=== PATIENT | male | born 1940 | race Caucasian/White ===

== ENCOUNTER → 2019-01-03 10:49 | Outpatient (CLI) | payer MEDICARE, SELFPAY ==
--- NOTE | 2019-01-03 10:56 | XR_ITS ---
XR knee LT 3V HISTORY: ITS.REASON: ACUTE PAIN LT KNEE ORDERING PHYSICIAN: Bakari Edmond MD PATIENT AGE: 78 years COMPARISON: None FINDINGS: Mild osteoarthritic changes involve all 3 compartments. No fracture or dislocation. No lytic or blastic change. There is increased density in the suprapatellar region suggesting knee joint effusion. Moderate vascular calcification also noted. 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
== END ==
PROVIDERS: PCP Internal Medicine Adolescent Medicine; Visit Provider Internal Medicine Adolescent Medicine
DX: M25.562 Pain in left knee (principal)
CPT/HCPCS: 73562

== ENCOUNTER → 2021-02-19 10:08 | Outpatient (CLI) | payer MEDICARE, SELFPAY ==
[2021-02-19 11:02] LABS: Basophils % 0.5 % (0.1-2.0); Eosinophils # 0.1 K/mm3 (0.0-0.4); Eosinophils % 1.5 % (0.1-12.0); Hematocrit 48.8 % (42.0-52.0); Hemoglobin 15.8 g/dL (14.1-18.0); Lymphocytes # 1.9 K/mm3 (0.7-4.5); Lymphocytes % 27.6 % (10-50); Mean Corpuscular HGB Conc 32.3 g/dL (31.8-35.4); Mean Corpuscular Hemoglobin 29.8 pg (27.0-31.2); Mean Corpuscular Volume 92.2 fl (80-94); Mean Platelet Volume 9.1 fl (7.4-10.4); Monocytes # 0.6 K/mm3 (0.1-1.0); Monocytes % 8.7 % (1.7-9.3); Neutrophils # 4.2 K/mm3 (1.8-7.8); Neutrophils % 61.7 % (37.0-80.0); Platelet Count 177 K/mm3 (142-424); Red Blood Count 5.29 M/mm3 (4.60-6.20); Red Cell Distribution Width 13.4 % (11.5-17.5); White Blood Count 6.7 K/mm3 (4.8-10.8)
[2021-02-19 11:13] LABS: Chloride 106 mmol/L (98-107); Sodium 137 mmol/L (136-145)
[2021-02-19 11:14] LABS: Potassium 4.7 mmoL/L (3.5-5.1)
[2021-02-19 11:16] LABS: Alanine Aminotransferase 21 U/L (12-78); Albumin Level 4.2 g/dl (3.5-5.0); Albumin/Globulin Ratio 1.5 (1.1-1.8); Alkaline Phosphatase 87 U/L (38-126); Anion Gap 12.7 mEq/L (5-15); Aspartate Amino Transferase 31 U/L (17-59); Bilirubin,Total 0.9 mg/dl (0.2-1.3); Blood Urea Nitrogen 37 mg/dl (9-20); Calcium 9.1 mg/dl (8.4-10.2); Carbon Dioxide 23 mmol/L (22.0-30.0); Cholesterol 270 mg/dl (140-200); Estimated Glomerular Filt Rate 23 ml/min (>60); GFR (African American) 28 ML/MIN (>60); Globulin 2.8 g/dL (1.3-3.2); Glucose 107 mg/dl (74-100); Triglycerides 191 mg/dl (30-150); VLDL Cholesterol 38 mg/dL (0-40)
[2021-02-19 11:17] LABS: Chol/HDL Ratio 6.9 (1-3.5); HDL Cholesterol 39 mg/dl (40-60)
[2021-02-19 11:28] LABS: Direct LDL Cholesterol 165.84 mg/dL (100-129)
== END ==
PROVIDERS: Visit Provider Internal Medicine Adolescent Medicine
DX: I10 Essential (primary) hypertension (principal); N18.2 Chronic kidney disease, stage 2 (mild)
CPT/HCPCS: 36415; 80053; 80061; 85025

== ENCOUNTER → 2021-02-25 11:54 | Outpatient (CLI) | payer MEDICARE, SELFPAY ==
--- NOTE | 2021-02-25 | CA_ITS ---
APPROVED REPORT Exam: Pharmacologic Technologist: Abbey England, Ht: 5 ft 3 in Wt: 175 lbs BSA: 1.83 m2 HR: 57 bpm BP: 157/77 mmHg Medical History Medications: Lisinopril,,,,, Aspirin,,,,, TAMSULOSIN,,,,, Stress Test Details Test: LEXISCAN HR Resting HR: 60 bpm Max Heart Rate (APMHR): 138 bpm Max HR Achieved: 76 bpm Target HR (85% APMHR): 117 bpm % of APMHR: 55 Recovery HR: 64 bpm BP Resting BP: 157/77 mmHg Max BP: 157/77 mmHg Recovery BP: 132.0/69.0 mmHg ECG Resting ECG: NSR Clinical Exercise duration: 04:01 min Highest Stage Achieved: Stress ECG Conclusion Symptoms: None Arrhythmias/Ectopy: Rare PAC. ST-T Changes: No significant changes Conclusion: Unremarkable Lexiscan stress. Myoview images reported separately. Electronically signed by : Saurabh Mishra, 02/25/2021 21:45:01
--- NOTE | 2021-02-25 12:04 | NM_ITS ---
APPROVED REPORT Exam: Nuclear Stress Test Indication: chest pain..short of breath Patient Location: Outpatient Stress Tech: Abbey England OR Tech:Piper Ta, ARRT, RT (R)(N) Ht: 5 ft 5 in Wt: 175 lbs HR: 57 bpm BP: 157/77 mmHg BSA: 1.87 m2 BMI: 29.1 History: chest pain..short of breath Procedure: Patient received a 0.4 mg of intravenous Lexiscan, resting heart rate 57 bpm, resting blood pressure 157/77 mmHg, with Lexiscan maximum heart rate achived was 71 bpm which is Less than 85 % of the maximum predicted heart rate and blood pressure was 132/67 mmHg. With Lexiscan, patient denied any complaint of chest pain. Electrocardiogram Stick electrocardiogram shows sinus rhythm, with Lexiscan there is less than 1.[address] segment depression noted from the baseline EKG. The EKG portion of the Lexiscan is nondiagnostic. Cardiac Stress and Resting SPECT Images: Cardiac Stress and Resting SPECT images were obtained using technetium 99m Myoview 32.9 mCi stress and 9.99 mCi at rest. Gated SPECT for analysis of segmental wall motion and calculation of the ejection fraction also done. Cardiac stress and rest SPECT images show moderate to large sized area of fixed defect involving the anterior, anterior apical, apex and anteroseptal wall consistent with area of myocardial scarring without significant sunshine-infarct ischemia, computer derived ejection fraction is 42% with marked hypokinesis involving the anterior, anterior apical, apex and anteroseptal wall, right ventricle is normal size and contractility. Conclusion: 1. The EKG portion of the Lexiscan is nondiagnostic. 2. Scintigraphic evidence of myocardial scarring as described above without significant sunshine-infarct ischemia, computer derived ejection fraction 42% with segmental wall motion abnormality as described above. Right ventricle is normal size and contractility. 3. Abnormal Lexiscan Myoview study. Electronically signed by : Saurabh Mishra, 02/25/2021 21:57:05
== END ==
PROVIDERS: PCP Internal Medicine Adolescent Medicine; Visit Provider Internal Medicine Adolescent Medicine
DX: I20.8 Other forms of angina pectoris (principal)
CPT/HCPCS: 78452; 93017; A9502; J2785

== ENCOUNTER → 2021-08-21 11:13 | Outpatient (CLI) | payer MEDICARE, SELFPAY ==
[2021-08-21 11:38] LABS: Basophils % 0.4 % (0.1-2.0); Eosinophils # 0.1 K/mm3 (0.0-0.4); Hematocrit 47.5 % (42.0-52.0); Hemoglobin 15.3 g/dL (14.1-18.0); Lymphocytes # 1.8 K/mm3 (0.7-4.5); Lymphocytes % 24.9 % (10-50); Mean Corpuscular HGB Conc 32.1 g/dL (31.8-35.4); Mean Corpuscular Hemoglobin 30.8 pg (27.0-31.2); Mean Platelet Volume 8.5 fl (7.4-10.4); Monocytes # 0.6 K/mm3 (0.1-1.0); Monocytes % 8.9 % (1.7-9.3); Neutrophils # 4.7 K/mm3 (1.8-7.8); Neutrophils % 64.9 % (37.0-80.0); Platelet Count 187 K/mm3 (142-424); Red Blood Count 4.95 M/mm3 (4.60-6.20); Red Cell Distribution Width 13.4 % (11.5-17.5); White Blood Count 7.2 K/mm3 (4.8-10.8)
[2021-08-21 12:38] LABS: Anion Gap 13.7 mEq/L (5-15); Blood Urea Nitrogen 34 mg/dl (9-20); Calcium 8.8 mg/dl (8.4-10.2); Carbon Dioxide 25 mmol/L (22.0-30.0); Chloride 105 mmol/L (98-107); Estimated Glomerular Filt Rate 27 ml/min (>60); GFR (African American) 33 ML/MIN (>60); Glucose 104 mg/dl (74-100); Potassium 4.7 mmoL/L (3.5-5.1); Sodium 139 mmol/L (136-145)
[2021-08-21 13:07] LABS: Prostate Specific Ag, Diagnost 5.68 ng/ml (0.0-4.0)
== END ==
PROVIDERS: Visit Provider Internal Medicine Adolescent Medicine
DX: I10 Essential (primary) hypertension (principal); R97.20 Elevated prostate specific antigen [PSA]
CPT/HCPCS: 36415; 80048; 84153; 85025

== ENCOUNTER 2024-10-31 11:00 | Outpatient (RCR) | payer MEDICARE, SELFPAY ==
--- NOTE | 2024-10-20 08:42 | HMH.PTOPWND ---
Rehab Outpt Wound Evaluation Rehab OP Wound Evaluation Start: 10/20/24 07:59 Freq: Status: Active Protocol: Document 10/20/24 08:23 RADHA (Rec: 10/20/24 08:42 PHORNAILA [id number]) E-signed By John Paul Cates, PT Subjective/History History History This is the initial PT wound care eval for Traas Jamison, 83 yowm who presents with L elbow skin tear that occurred ~ 3 days ago. He reports, I was lifting upmy recliner to look for something, when it fell over and skinned my arm through my shirt sleeve. He does take anticoagulant medications and was initially concerned about the bleeding, but this has mostly subsided now. He reports no pain at this time and no tenderness around the wound area. He has PMH of CAD with stents. Subjective Subjective Currently no c/o pain or TTP, no significant edema noted. New diagnosis of cancer in past 12 No months? Wound Eval Wound Left Elbow Wound Type Skin Tear Is This a Chronic Wound No Wound Length (cm) 5.9 Wound Width (cm) 5.0 Wound Depth (cm) 0.1 Wound Bed Appearance Beefy Red Percentage Granulated (%) 100 Wound Margins Description Well Defined Surrounding Tissue Appearance [place],Purple Edema Degree None Query Text:1+ Trace, Barely Detectable, Rebound 15-30 seconds 2+ Moderate, Slight Indentation, Rebound 10-20 seconds 3+ Deep, Deeper Indentation, Rebound > 30 seconds 4+ Very Deep, Rebound > 60 seconds Drainage Description Sanguineous Drainage Amount Small Primary Dressing Composite Comment aquaphor, optifoam thin Wound Secondary Dressing Type Adhering Gauze Roll Wound Debridement Method Forceps,Gauze,Mechanical Dressing Change Patient Tolerance Tolerated Well Wound Problems/Impairments Impairments Problems/Impairmments Wound Care Needs,Impaired Self Care/Self Management Prognosis Rehab Potential Good Comment Skilled therapy is indicated to reduce overall wound surface area and return pt to PLOF. Clinical Impression Consistent with Diagnosis Yes Short Term Goals Number of Weeks 2 Decrease Wound Area Yes: by 25% Medical Record Administrator Goals Number of Weeks 4 Decrease Wound Area Yes: by 75% Outpatient Therapy Plan of Care Treatment Plan May Include Manual Therapy Techniques Yes ADL/Self Care Education Yes Wound Care Yes Eval/Re-Eval Yes Frequency Times per week 1 Duration Number of Weeks 4 Addendums This patient is a candidate for social No or vocational rehab? Patient/Guardian verbally acknowledges Yes understanding of treatment program and consents to further treatment? Patient/Guardian verbally acknowledges Yes understanding of diagnosis, prognosis and goals for treatment? Eval Complexity PT Charges 68174 - Moderate Complexity PHYSICIAN CERTIFICATION: I certify the specified therapy services for Taras Jamison are required, authorized, and reviewed every 30 days.
== END 2024-10-31 23:59 | disposition home or self-care (01) ==
LOC: PT 11:00
PROVIDERS: Visit Provider Nurse Practitioner Family
DX: S51.812A Laceration without foreign body of left forearm, initial encounter (principal)
CPT/HCPCS: 97162; 97597

== ENCOUNTER 2025-10-17 14:10 | Outpatient (CLI) | payer MEDICARE, SELFPAY ==
--- OUTSIDE RECORDS SUMMARY | 2025-10-17 14:13 | XMS_ITS | Continuity of Care Document ---
Author Organization [facility] [place] [address] Phone Care Team Providers Care Cow Tender Name Role Phone No Pcp, Per Patient Primary Care Provider Feliciai obed Encounters Date Type Department Care Team Description 07/19/2025 [place] [address] Phil Larsen MD Medication Refill 07/10/2025 3:00 PM EDT Office [place] [address] Phil Larsen MD Chronic systolic heart failure (HCC) (Primary Dx) 04/03/2025 3:15 PM EDT Office [place] [address] Phil Larsen MD Chronic systolic heart failure (HCC) (Primary Dx) 03/06/2025 [place]phone [place] [address] Phil Larsen MD Medication Question 03/06/2025 11:30 AM EDT Office Visit [facility] [address] Phil Larsen MD Sleep disturbance (Primary Dx); Primary hypertension 02/21/2025 Refill [facility] [address] [address] Phil Larsen MD Medication Refill 02/04/2025 12:07 PM EDT - 02/08/2025 3:46 PM EDT Hospital Encounter [facility] [place] [address] Ramin Trevizo MD Watson, James Brandon, DO Syncope and collapse (Primary Dx) Discharge Disposition: Home or Self Care 02/04/2025 Travel 01/24/2025 10:45 AM EDT Office Visit [facility] Nephrology [place] [address] [place] [address] Pauly Chan APRN Stage 4 chronic kidney disease (HCC) (Primary Dx); Essential hypertension 01/17/2025 7:42 AM EDT - 01/17/2025 8:15 AM EDT Hospital Encounter [facility] [address] [place] [address] Stage 4 chronic kidney disease (HCC); Essential hypertension; Isolated proteinuria with minor glomerular abnormality; Hypertension, unspecified type Discharge Disposition: Home or Self Care 01/17/2025 8:16 AM EDT - 01/17/2025 11:59 PM EDT Hospital Encounter [facility] [place] [address] Pauly Chan APRN Stage 4 chronic kidney disease (HCC); Essential hypertension Discharge Disposition: Home or Self Care 01/16/2025 Orders Only [facility] Nephrology [place] [address] [place] [address] Selvin Longo MD Hypertension, unspecified type (Primary Dx) 12/28/2024 10:45 AM EDT Office Visit [facility] Nephrology [place] [address] [place] [address] Pauly Chan APRN Stage 4 chronic kidney disease (HCC) (Primary Dx); Essential hypertension 12/14/2024 Telephone [facility] [address] [place] [address] Phil Larsen MD Results 12/13/2024 9:55 AM EST - 12/13/2024 11:59 PM EST Hospital Encounter [facility] [address] [place] [place] [address] Stage 4 chronic kidney disease (HCC); Essential hypertension; Isolated proteinuria with minor glomerular abnormality; 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; Encounter to establish care; Chronic systolic heart failure (HCC); Stage 3 chronic kidney disease, unspecified whether stage 3a or 3b CKD (HCC) Discharge Disposition: Home or Self Care 2024 11:15 AM EST Office Visit [facility] [address] [address] Phil Larsen MD 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; Encounter to establish care; Chronic systolic heart failure (HCC); Stage 3 chronic kidney disease, unspecified whether stage 3a or 3b CKD (HCC) 11/10/2024 Telephone [facility] [address] [address] Phil Larsen MD Medication Question 11/02/2024 Refill [facility] [address] [address] Phil Larsen MD Medication Refill 10/14/2024 Refill [facility] Nephrology [place] [address] [place] [address] Selvin Longo MD Medication Refill 09/21/2024 12:15 PM EST Office Visit [facility] Nephrology [place] [address] [place] [address] Selvin Lnogo MD Stage 4 chronic kidney disease (HCC) (Primary Dx); Essential hypertension; Isolated proteinuria with minor glomerular abnormality 09/13/2024 9:54 AM EST - 09/13/2024 11:59 PM EST Hospital Encounter [facility] [place] [address] Stage 4 chronic kidney disease (HCC); Essential hypertension; Isolated proteinuria with minor glomerular abnormality Discharge Disposition: Home or Self Care 08/23/2024 Refill [facility] Nephrology [place] [address] [place] [address] Selvin Longo MD Medication Refill 06/15/2024 2:15 PM EDT Office Visit [facility] Nephrology [place] [address] [place] [address] Selvin Longo MD Stage 4 chronic kidney disease (HCC) (Primary Dx); Essential hypertension; Isolated proteinuria with minor glomerular abnormality 06/08/2024 9:36 AM EDT - 06/08/2024 11:59 PM EDT Hospital Encounter [facility] [address] [address] Stage 4 chronic kidney disease (HCC); Essential hypertension; Isolated proteinuria with minor glomerular abnormality Discharge Disposition: Home or Self Care 05/03/2024 [place] [address] Phil Larsen MD Medication Refill 04/11/2024 [place] [address] Phil Larsen MD Patient Question 04/06/2024 Refill [facility] [place] [id number] Phil Larsen MD Medication Refill 04/04/2024 10:30 AM EDT Office Visit [facility] [address] [address] Phil Larsen MD Sleep disturbance (Primary Dx) 03/27/2024 Telephone [facility] [address] [address] Salas Blair MD Other 03/15/2024 1:30 PM EDT Office Visit [facility] Nephrology [address] [place] [address] Selvin Longo MD Stage 4 chronic kidney disease (HCC) (Primary Dx); Essential hypertension; Isolated proteinuria with minor glomerular abnormality 03/07/2024 Orders Only [facility] Nephrology [address] [place] [address] Selvin Longo MD Chronic kidney disease, stage IV (severe) (HCC) (Primary Dx) 03/07/2024 10:04 AM EDT - 03/07/2024 11:59 PM EDT Hospital Encounter [facility] [address] [address] Chronic kidney disease, stage IV (severe) (HCC) Discharge Disposition: Home or Self Care 03/06/2024 Telephone [facility] [address] [address] Phil Larsen MD Appointment Needed 02/21/2024 4:45 PM EDT - 02/21/2024 11:59 PM EDT Hospital Encounter [facility] [address] [place] [address] Syncope and collapse Discharge Disposition: Home or Self Care 02/20/2024 12:41 PM EDT - 02/21/2024 6:32 PM EDT Hospital Encounter [facility] [address] [address] [place] [address] Shai Chacon MD Moise, Ephese, MD Syncope and collapse (Primary Dx) Discharge Disposition: Home or Self Care 02/20/2024 Travel 02/08/2024 11:00 AM EDT Office Visit [facility]&[address] [address] Phil Larsen MD Chronic systolic heart failure (HCC) (Primary Dx) 01/28/2024 Refill SE[facility] H&[address] [address] Phil Larsen MD Medication Refill 12/25/2023 Refill [facility] Nephrology [address] [place] [address] Selvin Longo MD Medication Refill 12/23/2023 9:42 AM EST - 12/23/2023 11:59 PM EST Hospital Encounter [facility] [address] [place], [place] [address] Stage 4 chronic kidney disease (HCC); Essential hypertension; Isolated proteinuria with minor glomerular abnormality Discharge Disposition: Home or Self Care 12/16/2023 2:15 PM EST Office Visit [facility] Nephrology [address] [address] Selvin Longo MD Stage 4 chronic kidney disease (HCC) (Primary Dx); Essential hypertension; Isolated proteinuria with minor glomerular abnormality 12/10/2023 10:32 AM EST - 12/10/2023 11:59 PM EST Hospital Encounter [facility] [place] [facility] [address] [place], [place] [address] Stage 4 chronic kidney disease (HCC); Essential hypertension; Isolated proteinuria with minor glomerular abnormality Discharge Disposition: Home or Self Care 12/08/2023 Refill [facility] [place] [address] [facility] [address] [place] [address] Phil Larsen MD Medication Refill 11/24/2023 Refill [facility] Nephrology [address] [address] Selvin Longo MD Medication Refill 11/15/2023 Refill [facility] [address] [address] Phil Larsen MD Medication Refill 09/15/2023 1:45 PM EST Office Visit [facility] Nephrology [address] [address] Selvin Longo MD Stage 4 chronic kidney disease (HCC) (Primary Dx); Essential hypertension; Isolated proteinuria with minor glomerular abnormality 09/06/2023 Orders Only [facility] [address] [place] [address] Radha Estevez Chronic kidney disease, stage IV (severe) (HCC) 09/06/2023 10:45 AM EST - 09/06/2023 11:59 PM EST Hospital Encounter [facility] [address] [place] [address] Discharge Disposition: Home or Self Care 09/06/2023 Orders Only [facility] Nephrology [address] [address] Selvin Longo MD Chronic kidney disease, stage IV (severe) (HCC) (Primary Dx) 07/27/2023 1:45 PM EDT Office Visit [facility] [address] [address] Phil Larsen MD 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) 06/15/2023 Refill [facility] [address] [address] Phil Larsen MD Medication Refill 06/09/2023 1:15 PM EDT Office Visit [facility] Nephrology [address] [address] Selvin Longo MD Stage 4 chronic kidney disease (HCC) (Primary Dx); Essential hypertension 06/02/2023 1:27 PM EDT - 06/02/2023 11:59 PM EDT Hospital Encounter [facility] [address] [place] [address] Hyperlipidemia, unspecified hyperlipidemia type; Stage 4 chronic kidney disease (HCC); Essential hypertension Discharge Disposition: Home or Self Care 05/20/2023 Refill [facility] Nephrology [address] [address] Pauly Chan APRN Medication Refill 04/23/2023 Refill [facility] [place] [address] [facility] [address] [place] [address] Phil Larsen MD Medication Refill 03/09/2023 10:15 AM EDT Office Visit [facility] Nephrology [place] [address] [place] [address] Pauly Chan APRN Stage 4 chronic kidney disease (HCC) (Primary Dx); Essential hypertension 03/06/2023 Refill [facility] [address] [address] Selvin Longo MD Medication Refill 03/02/2023 Orders Only [facility] Nephrology [address] [address] Selvin Longo MD Chronic kidney disease, stage IV (severe) (HCC) (Primary Dx) 03/02/2023 Travel 03/02/2023 10:09 AM EDT - 03/02/2023 11:59 PM EDT Hospital Encounter [facility] [address] [address] Chronic kidney disease, stage IV (severe) (HCC) Discharge Disposition: Home or Self Care 01/19/2023 11:45 AM EDT Office Visit [facility] [address] [address] Phil Larsen MD Primary hypertension (Primary Dx) 01/11/2023 Telephone [facility] [address] [phone] Phil Larsen MD Lab Orders 01/11/2023 Travel 01/11/2023 10:18 AM EDT - 01/11/2023 11:59 PM EDT Hospital Encounter [facility] [address] [place] [address] Stage 4 chronic kidney disease (HCC); Essential hypertension, malignant Discharge Disposition: Home or Self Care 11/05/2022 1:15 PM EST Office Visit [facility] Nephrology [address] [address] Selvin Longo MD Stage 4 chronic kidney disease (HCC) (Primary Dx); Essential hypertension, malignant 10/30/2022 Refill [facility] [place] [address] [facility] [address] [place] [address] Phil Larsen MD Medication Refill 10/28/2022 Travel 10/28/2022 9:33 AM EST - 10/28/2022 11:59 PM EST Hospital Encounter [facility] [address] [address] Stage 4 chronic kidney disease (HCC); Essential hypertension, malignant; Isolated proteinuria with minor glomerular abnormality Discharge Disposition: Home or Self Care 07/14/2022 1:30 PM EDT Office Visit [facility] [address] [address] Phil Larsen MD 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); Encounter to establish care; Chronic systolic heart failure (HCC); Stage 3 chronic kidney disease, unspecified whether stage 3a or 3b CKD (HCC) 07/09/2022 2:15 PM EDT Office Visit [facility] Nephrology [address] [place] [address] Selvin Longo MD Stage 4 chronic kidney disease (HCC) (Primary Dx); Essential hypertension, malignant; Isolated proteinuria with minor glomerular abnormality 07/02/2022 Travel 07/02/2022 10:38 AM EDT - 07/02/2022 11:59 PM EDT Hospital Encounter [facility] [address] [address] Stage 4 chronic kidney disease (HCC); Essential hypertension, malignant; Isolated proteinuria with minor glomerular abnormality Discharge Disposition: Home or Self Care 05/20/2022 Refill [facility] [address] [address] Phil Larsen MD Medication Refill 05/18/2022 Refill [facility] Nephrology [place] [address] [place] [address] Selvin Longo MD Medication Refill 05/11/2022 Telephone [facility] [address] [address] Phil Larsen MD Results 05/04/2022 Travel 05/04/2022 1:29 PM EDT - 05/04/2022 11:59 PM EDT Hospital Encounter [facility] 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; Chronic systolic heart failure (HCC) Discharge Disposition: Home or Self Care 04/07/2022 1:30 PM EDT Office Visit [facility] Nephrology [address] [place] [address] Selvin Longo MD Stage 4 chronic kidney disease (HCC) (Primary Dx); Essential hypertension, malignant; Isolated proteinuria with minor glomerular abnormality 03/31/2022 Orders Only [facility] [place] [facility] [address] [place] [address] Flavio Shepard RT Stage 4 chronic kidney disease (HCC); Essential hypertension, malignant; Isolated proteinuria with minor glomerular abnormality 03/31/2022 Travel 03/31/2022 1:09 PM EDT - 03/31/2022 11:59 PM EDT Hospital Encounter [facility] [place] [facility] [address] [place], [place] [address] Discharge Disposition: Home or Self Care 02/18/2022 Travel 02/18/2022 7:59 AM EDT - 02/18/2022 11:59 PM EDT Hospital Encounter [facility] [place] [facility] [address] [place] [address] S/P coronary artery stent placement; 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 Discharge Disposition: Home or Self Care 12/23/2021 11:45 AM EST Office Visit [facility] [place] [address] [place] [address] Phil Larsen MD S/P coronary artery stent placement (Primary Dx); 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; Chronic systolic heart failure (HCC) 12/17/2021 Travel 12/17/2021 10:30 AM EST Office Visit [facility] Nephrology [address] [place] [address] Selvin Longo MD Stage 4 chronic kidney disease (HCC) (Primary Dx); Essential hypertension, malignant; Isolated proteinuria with minor glomerular abnormality 12/11/2021 Travel 12/11/2021 10:35 AM EST - 12/11/2021 11:59 PM EST Hospital Encounter [facility] [address] [address] Stage 4 chronic kidney disease (HCC); Essential hypertension, malignant; Isolated proteinuria with minor glomerular abnormality Discharge Disposition: Home or Self Care 11/17/2021 Telephone [facility] [address] [address] Phil Larsen MD Medication Refill 11/15/2021 Refill [facility] [place] [address] [place] [phone] Liya Deutsch APRN Medication Refill 11/11/2021 Refill [facility] [place] [address] [phone] Phil Larsen MD Medication Refill 09/17/2021 11:15 AM EST Office Visit [facility] Nephrology [address] [place] [id number] Selvin Longo MD Stage 4 chronic kidney disease (HCC) (Primary Dx); Essential hypertension, malignant; Isolated proteinuria with minor glomerular abnormality 09/10/2021 Travel 09/10/2021 10:45 AM EST - 09/10/2021 11:59 PM EST Hospital Encounter [facility] [address] [address] Stage 4 chronic kidney disease (HCC); Essential hypertension, malignant; Isolated proteinuria with minor glomerular abnormality Discharge Disposition: Home or Self Care 08/26/2021 Telephone [facility] [address] [place] [address] Phil Larsen MD Medication Question 08/13/2021 9:30 AM EDT Office Visit [facility] Nephrology [address] [place] [address] Selvin Longo MD Stage 4 chronic kidney disease (HCC) (Primary Dx); Essential hypertension, malignant; Isolated proteinuria with minor glomerular abnormality 07/31/2021 Telephone [facility] Nephrology [place] [address] [place] [address] Selvin Longo MD Labs Only 07/31/2021 Travel 07/31/2021 8:55 AM EDT - 07/31/2021 11:59 PM EDT Hospital Encounter [facility] [address] [place], [place] [address] Stage 3 chronic kidney disease, unspecified whether stage 3a or 3b CKD (HCC); Essential hypertension, malignant Discharge Disposition: Home or Self Care 07/07/2021 Telephone [facility] [address] [place] [address] [address] [place] [address] Laly Riley, Clerical Staff Cardiac Rehab (Referral) 06/27/2021 9:43 AM EDT - 06/27/2021 11:59 PM EDT Hospital Encounter [facility] [address] [place], [place] [address] Stage 4 chronic kidney disease (HCC); Essential hypertension Discharge Disposition: Home or Self Care 06/24/2021 Travel 06/24/2021 4:00 PM EDT Office Visit [facility] [address] [place] [phone] Phil Larsen MD 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) 06/19/2021 Travel 06/19/2021 2:19 PM EDT - 06/19/2021 11:59 PM EDT Hospital Encounter [facility] [address] [place], [place] [address] 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 [place] [address] Lisa, Candy, Clerical Staff Cardiac Rehab (referral ) 05/21/2021 Telephone [facility] Cardiac Rehab Honey Riley [address] [place] [address] Candy Gonzalez, Clerical Staff Cardiac Rehab (referral ) 05/16/2021 7:43 AM EDT - 05/17/2021 10:40 AM EDT [place] [address] Helen Braun MD Coronary artery disease involving tuolumne coronary artery of tuolumne heart with other form of angina pectoris (HCC) Discharge Disposition: Home or Self Care 05/16/2021 Travel 05/16/2021 12:00 PM EDT - 05/16/2021 1:30 PM EDT Surgery [facility] MENTAL HEALTH TECH [facility] [place] [address] Helen Braun MD CORONARY PERCUTANEOUS INTERVENTION (PCI) 05/14/2021 Refill [facility] [address] [place] [address] Phil Larsen MD Medication Refill 05/14/2021 Travel 05/14/2021 11:49 AM EDT - 05/14/2021 11:59 PM EDT Hospital Encounter [facility] Lab [address] [place] [address] Coronary artery disease involving tuolumne coronary artery of tuolumne heart with other form of angina pectoris (HCC) Discharge Disposition: Home or Self Care 05/14/2021 Telephone [facility] [address] [phone] Helen Braun MD Other (Directions regarding Xarelto.) 05/12/2021 Telephone [facility] [address] [phone] Helen Braun MD Other (Set up PCI) 05/12/2021 Travel 05/12/2021 1:30 PM EDT Office Visit [facility] Surgeons [place] [address] [facility] [address] [place] [address] Luis Lacey MD 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) 05/09/2021 Telephone [facility] [address] [place] [address] Phil Larsen MD Medication Problem 05/06/2021 Refill [facility] [address] [place] [address] Phil Larsen MD Medication Refill 05/02/2021 Travel 05/02/2021 1:15 PM EDT Office Visit [facility] [address] [place] [address] Phil Larsen MD 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) 04/29/2021 Travel 04/29/2021 1:15 PM EDT Office Visit [facility] Nephrology [place] [address] [place] [address] Selvin Longo MD Stage 4 chronic kidney disease (HCC) (Primary Dx); Essential hypertension 04/25/2021 Travel 04/25/2021 10:20 AM EDT - 04/25/2021 11:59 PM EDT Hospital Encounter [facility] Lab [address] [place] [id number] Stage 3a chronic kidney disease (HCC) Discharge Disposition: Home or Self Care 04/24/2021 Orders Only [facility] Nephrology [place] [address] [place] [address] Selvin Longo MD Stage 3a chronic kidney disease (HCC) (Primary Dx) 04/11/2021 Travel 04/11/2021 3:00 PM EDT - 04/11/2021 4:00 PM EDT Surgery [facility] MENT[facility] HE[facility] TECH [facility] [place] [address] Helen Braun MD CORONARY ANGIOGRAM / CARDIAC CATHETERIZATION 04/11/2021 12:41 PM EDT - 04/11/2021 7:20 PM EDT Hospital Encounter [facility] CARD CATH REC [facility] [place] [address] Helen Braun MD Arteriosclerotic heart disease (ASHD); Dyspnea on exertion Discharge Disposition: Home or Self Care 04/08/2021 Travel 04/08/2021 3:17 PM EDT - 04/08/2021 11:59 PM EDT Hospital Encounter [facility] [address] [place] [address] Chronic systolic heart failure (HCC) Discharge Disposition: Home or Self Care 04/04/2021 Telephone [facility] [address] [place] [address] Phil Larsen MD Other ([facility] Scheduling) 04/04/2021 Travel 04/04/2021 11:15 AM EDT Office Visit [facility] [address] [place] [address] Phil Larsen MD Chronic systolic heart failure (HCC) (Primary Dx); 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 [address] Stage 4 chronic kidney disease (HCC); Essential hypertension Discharge Disposition: Home or Self Care 04/01/2021 Travel 04/01/2021 3:18 PM EDT - 04/01/2021 11:59 PM EDT Hospital Encounter [facility] [address] [place] [address] Selvin Longo MD Kidney stones Discharge Disposition: Home or Self Care 04/01/2021 Orders Only [facility] Nephrology [place] [address] [place] [address] Selvin Longo MD Kidney stones (Primary Dx) 04/01/2021 2:15 PM EDT Office Visit [facility] Nephrology [place] [address] [place] [address] Selvin Longo MD Stage 4 chronic kidney disease (HCC) (Primary Dx); Essential hypertension 03/20/2021 Telephone [facility] [address] [place] [phone] Phil Larsen MD Results 03/14/2021 8:17 AM EDT - 03/14/2021 11:59 PM EDT Hospital Encounter [facility] NUC MED [facility] 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 [address] Phil Larsen MD Encounter to establish care; Chronic systolic heart failure (HCC); 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; Stage 3 chronic kidney disease, unspecified whether stage 3a or 3b CKD (HCC) Discharge Disposition: Home or Self Care 03/11/2021 Travel 03/11/2021 7:25 AM EDT - 03/11/2021 11:59 PM EDT Hospital Encounter [facility] [address] [place] [address] Phil Lasren MD Encounter to establish care; Chronic systolic heart failure (HCC); 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; Stage 3 chronic kidney disease, unspecified whether stage 3a or 3b CKD (HCC) Discharge Disposition: Home or Self Care 03/03/2021 Telephone [facility] [address] [place] [address] Phil Larsen MD Hypotension 03/01/2021 Travel 02/28/2021 Travel 02/28/2021 2:45 PM EDT Office Visit [facility] [address] [place] [address] Phil Larsen MD Encounter to establish care (Primary Dx); Chronic systolic heart failure (HCC); 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; Stage 3 chronic kidney disease, unspecified whether stage 3a or 3b CKD (HCC) 12/07/2018 6:48 AM EST - 12/07/2018 8:17 AM EST Emergency [facility] [address] [place] [address] Isacc Francisco MD Urinary retention (Primary Dx) Discharge Disposition: Home or Self Care 11/28/2018 4:09 PM EST - 11/30/2018 6:30 PM EST Hospital Encounter [address] [address] [place] [address] Ramin Trevizo MD Bernardon, Stephen O, MD Goetz, Kevin R, MD Hydronephrosis with urinary obstruction due to ureteral calculus (Primary Dx); Acute renal failure, unspecified acute renal failure type; KATINA (acute kidney injury) Discharge Disposition: Home or Self Care 11/29/2018 8:58 AM EST Anesthesia Event [facility] [address] [facility] Nathalie Mckinley MD Braxton-Brown, Jennifer, APRN 11/29/2018 8:50 AM EST - 11/29/2018 9:55 AM EST Surgery [facility] [address] [place] [address] Zeke Mcginnis MD CYSTOSCOPY, URETEROSCOPY, LASER LITHOTRIPSY, RETROGRADE PYELOGRAM, STENT INSERTION 09/25/2014 10:30 AM EST - 09/26/2014 4:17 PM EST Hospital Encounter [facility] [address] [facility] Cand[place] Meg[place], [place] [address] Salvatore Poon MD Goetz, Familia Cherry MD Acute chest pain (Primary Dx); Dizziness; Creatinine elevation; HLD (hyperlipidemia); HTN (hypertension); Vertigo; Chest pain, unspecified; Dizziness and giddiness Discharge Disposition: Home or Self Care Allergies Active Allergy Reactions Criticality Noted Date Comments Penicillins 09/25/2014 Hydralazine Other (See Comments) Low 04/04/2021 Low bp Medications tamsulosin (FLOMAX) 0.4 mg Oral Capsule, Sust. Release 24 hr Take by mouth daily. Active aspirin 81 mg Oral Tablet, Delayed Release (E.C.) Take 81 mg by mouth daily. Active ergocalciferol (DRISDOL) 1,250 mcg (50,000 unit) Oral CapsuleIndication s:Stage 4 chronic kidney disease (HCC),Essential hypertension,Isol ated proteinuria with minor glomerular abnormality TAKE 1 CAPSULE ONE TIME WEEKLY 12 Capsule 3 4 Active calcitRIOL (ROCALTROL) 0.25 mcg Oral Capsule TAKE 1 CAPSULE EVERY DAY 90 Capsule 3 4 Active atorvastatin (LIPITOR) 40 mg Oral TabletIndications :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,Encounte r to establish care,Chronic systolic heart failure (HCC),Stage 3 chronic kidney disease, unspecified whether stage 3a or 3b CKD (HCC) Take 1 Tablet by mouth nightly. 90 Tablet 2 5 Active carvediloL (COREG) 6.25 mg Oral TabletIndications :Sleep disturbance,Prima ry hypertension Take 1 Tablet by mouth 2 times daily (with meals). 180 Tablet 3 5 Active Active Problems Problem Noted Date Diagnosed Date Troponin level elevated 02/07/2025 Sleep disturbance 04/04/2024 Ischemic cardiomyopathy 02/22/2024 Assessment & Plan (02/07/2025 11:46 AM EDT): BASA, plavix, statin, imdur Plavix stopped per cardiology Assessment & Plan (02/06/2025 10:56 AM EDT): BASA, plavix, statin, imdur Assessment & Plan (02/05/2025 10:15 AM EDT): BASA, plavix, statin, imdur Syncope and collapse 02/20/2024 Assessment & Plan (02/07/2025 11:46 AM EDT): Secondary to hypotension/orthostatic hypotension Troponin elevated Tele reviewed, no arrhythmia Carotid ultrasound noted, mild bilateral carotid stenosis, asymptomatic 2D echo noted, EF 55% Cardiology consult appreciated, discussed with cardiology BP meds adjusted, follow Assessment & Plan (02/06/2025 10:56 AM EDT): Unclear etiology Troponin elevated Orthos positive x 1, recheck Tele, no arrhythmia Carotid ultrasound noted, mild bilateral carotid stenosis, asymptomatic 2D echo pending Cardiology consult in setting of unclear etiology, recurrent syncope, significant cardiac history, elevated troponin Assessment & Plan (02/05/2025 10:15 AM EDT): Orthos neg Tele Check CUS, ECHO S/P coronary artery stent placement 05/17/2021 Assessment & Plan (02/07/2025 11:46 AM EDT): BASA, plavix, statin, imdur Plavix stopped per cardiology Assessment & Plan (02/06/2025 10:56 AM EDT): BASA, plavix, statin, imdur Assessment & Plan (02/05/2025 10:15 AM EDT): BASA, plavix, statin, imdur S/P peripheral artery angioplasty 05/16/2021 Chronic systolic heart failure 02/28/2021 Assessment & Plan (02/07/2025 11:46 AM EDT): Recent echo nml LVEF, echo now with normal EF Resume at reduced dose tomorrow Assessment & Plan (02/06/2025 10:56 AM EDT): Recent echo nml LVEF Assessment & Plan (02/05/2025 10:15 AM EDT): Recent echo nml LVEF ASHD (arteriosclerotic heart disease) 02/28/2021 Assessment & Plan (02/07/2025 11:46 AM EDT): BASA, plavix, statin, imdur Plavix stopped per cardiology Assessment & Plan (02/06/2025 10:56 AM EDT): BASA, plavix, statin, imdur Assessment & Plan (02/05/2025 10:15 AM EDT): BASA, plavix, statin, imdur CKD (chronic kidney disease) stage 4, GFR 15-29 ml/min 02/28/2021 Assessment & Plan (02/07/2025 11:46 AM EDT): Follow, creatinine improved today Follow BPH: On flomax Ur as OP Assessment & Plan (02/06/2025 10:56 AM EDT): Follow, creatinine elevated but still around baseline Follow BPH: On flomax Ur as OP Assessment & Plan (02/05/2025 10:15 AM EDT): Follow BPH: On flomax Ur as OP Nephrolithiasis 11/28/2018 KATINA (acute kidney injury) 11/28/2018 HTN (hypertension) 09/25/2014 Assessment & Plan (02/07/2025 11:46 AM EDT): Now BP low and orthostatics positive Continue Coreg, dose reduced, held for today Imdur stopped Follow orthostatics/BP as above Assessment & Plan (02/06/2025 10:56 AM EDT): BP elevated Continue Coreg Check orthostatics as above Follow BP Assessment & Plan (02/05/2025 10:15 AM EDT): BB HLD (hyperlipidemia) 09/25/2014 Assessment & Plan (02/07/2025 11:46 AM EDT): statin Assessment & Plan (02/06/2025 10:56 AM EDT): statin Assessment & Plan (02/05/2025 10:15 AM EDT): statin Resolved Problems Problem Noted Date Diagnosed Date Resolved Date Vertigo 09/26/2014 11/28/2018 Overview (09/26/2014): Seems positional. Ask PT to see. Acute chest pain 09/25/2014 11/28/2018 Creatinine elevation 09/25/2014 019 Overview (09/25/2014): 09/25 - Cr up to 1.5 on admission. Unclear of his baseline. Will follow. Dizziness 09/25/2014 11/28/2018 Overview (09/25/2014): Has some vertiginous qualities to it. PCP had ordered carotid u/s. Will order for here. Family History Medical History Relation Name Comments Cancer Brother Heart Disease Father Relation Name Status Comments Brother Father Mother Social History Smoking Status as of 10/17/2025 Tobacco Use Types Packs/Day Years Used Date Smoking Tobacco: Never Assessed [facility] Utilities Answer Date Recorded In the past 12 months has e [employer], gas, oil, or water [employer] threatened to shut off services in your home? No 02/05/2025 Overall Financial Resource Strain (CARDIA) Answe r Date Recorded How hard is it for you to pa y for the very basics like food, housing, medical care, and heating? Not hard at all 02/05/2025 PHQ-2 Answer Date Recorded PHQ-2 Total Score 0 02/05/2025 [facility] [place] of Occupat ional Health - Occupational Stress Questionnaire Answer Date Recorded Do you feel stress - tense, restless, nervous, or anxious, or unable to sleep at night because your mind is troubled all the time - these days? Not at all 02/05/2025 Exercise Vital Sign Answer Date Recorde d On average, how many days pe r week do you engage in moderate to strenuous exercise (like a brisk walk)? 0 days 02/05/2025 On average, how many minutes do you engage in exercise at this level? 0 min 02/05/2025 Hunger Vital Sign Answer Date Recorded Within the past 12 months, y ou worried that your food would run out before you got the money to buy more. Never true 02/06/20 25 Within the past 12 months, t he food you bought just didn't last and you didn't have money to get more. Never true 02/05/2025 [facility] IP Transportation Answer D ate Recorded In the past 12 months, has l ack of reliable transportation kept you from medical appointments, meetings, work or from getting things needed for daily living? No 02/05/2025 Sex and Gender Information Value Date Recorded Sex Assigned at Not on file Legal Sex Male 10:26 AM EST Gender Identity Not on file Sexual Orientation Not on file Last Filed Vital Signs Vital Sign Reading Time Taken Comments Blood Pressure 130/80 07/10/2025 2:31 PM EDT Pulse 75 07/10/2025 2:31 PM EDT Temperature 36.6 C (97.8 F) 02/08/2025 12:29 PM EDT Respiratory Rate 18 02/08/2025 1:18 PM EDT Oxygen Saturation 98% 07/10/2025 2:31 PM EDT Inhaled Oxygen Concentration - - Weight 71.2 kg (157 lb) 07/10/2025 2:31 PM EDT Height 160 cm (5' 3 ) 07/10/2025 2:31 PM EDT Body Mass Index 27.81 07/10/2025 2:31 PM EDT Plan of Treatment Upcoming Encounters Date Type Department Care Team (Late st Contact Info) Description 01/08/2026 11:45 AM EDT Office Visit [facility] [address] [place] [address] Phil Larsen MD [address] [place] [address] Medical Devices Implanted Type Area Dry Cleaning Machine Operator Device Identifier Shelf Expiration Date Model / Serial / Lot Stent Ureteral Contour 6 X 26 #[id number] - [id number] Implanted:Qty : 1 on 11/29/2018 by Zeke Mcginnis MD at [facility] Stent Left: Ureter [employer]:MICROVASIVE: UROLOGY 06/20/2021 [id number] / / [id number] 5.0mm X 26mm Ravenel Stent - [id number] Implanted:Qty : 1 on 05/16/2021 by Helen Braun MD at [facility] N/A: [employer] [id number] 09/19/2021 [id number] / / [id number] Procedures Procedure Name Priority Date/Time Associated Diagnosis Comments ECG AND WAVEFORMS - TELEMETRY Routine 02/08/2025 7:00 AM EDT ECG AND WAVEFORMS - TELEMETRY Routine 02/07/2025 7:12 PM EDT ADMIT Routine 02/07/2025 2:59 PM EDT ECG AND WAVEFORMS - TELEMETRY Routine 02/07/2025 7:17 AM EDT CBC WITH DIFF EKATERINA 02/07/2025 3:27 AM EDT BASIC METABOLIC PANEL EKATERINA 02/07/2025 3:27 AM EDT ECG AND WAVEFORMS - TELEMETRY Routine 02/06/2025 7:48 PM EDT IP CONSULT TO CARDIOLOGY Routine 02/06/2025 10:56 AM EDT Procedure Note - Salas Blair MD - 02/07/2025 8:41 AM EDTThis note is in progress. 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 History provided by: EMR, patient HPI: Naomy Jamison is a 84 y.o. male with PMH of CAD s/p PCI 04/2021,ICM with recovered EF, HTN, CKD who presents to ED after episode ofsyncope at latter day. He was feeling fine and drove to latter day on Wednesday. Hehad been standing and singing but had just sat down. His family noticedhim looking like he was nodding off the sleep but then he fell over allthe way. They came to him and he was mumbling and trying to open his eyes.No seizure activity noted, no loss of bowel of bladder. Denies anysymptoms of CP, SOB, lightheadedness or palpitations recently or justprior to episode. Recently BB dose was decreased due to lower BP. DeniesN/V or diarrhea. Had similar episode 1 year ago with no cause identifiedat that time. Wore a heart monitor for 28 days with no arrhythmias. Echocardiogram: 02/2024 ' * Technically difficult study. * Left ventricle is not well visualized. * Left ventricular function is normal with an estimated ejectionfraction of 55-60%. * Left ventricular segmental wall motion is grossly normal, however endocardial definition is limited. * The left ventricular diastolic function is consistent with stage I diastolic dysfunction (normal left atrial pressure). * Right ventricular chamber dimension is not well visualized. * Right ventricular systolic function is normal, with a tricuspidannular plane systolic excursion of 1.8 cm and a RV s' of 10.6 cm/s. Coronary angiography: 04/2021 Left Main There is mild diffuse disease throughout the vessel. Left Anterior Descending Prox LAD lesion is 100% stenosed. Short segment occlusion fills byantegrade collaterals Left Circumflex The vessel exhibits minimal luminal irregularities. Right Coronary Artery Prox RCA lesion is 99% stenosed. 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 Severe proximal RCA stenosis s/p PCI with RYLEE x 1 Family History- Family History Problem Relation Age of Onset Heart Disease Father Cancer Brother Social History- Social History Tobacco Use Smoking status: Former Current packs/day: 0.00 Average packs/day: 2.0 packs/day for 39.0 years (78.0 ttl pk-yrs) Types: Cigarettes Start date: 11/28/1952 Quit date: 11/28/1991 Years since quittin.2 Smokeless tobacco: Former Types: Chew Quit date: 11/28/2015 Substance Use Topics Alcohol use: No ROS: Denies: Constitutional: fever, chills, weight loss ENT: headaches, runny nose Cardiovascular: chest pain, edema, palpitations, dizziness, orthopnea,dyspnea, or syncope Pulmonary: cough, sputum production, wheezing and hemoptysis. Gastrointestinal: abdominal pain, nausea, vomiting, constipation,diarrhea, hematochezia and melena. 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 Authorizing Provider aspirin 81 mg Oral Tablet, Delayed Release (E.C.) Take 81 mg by mouthdaily. Yes Provider, Historical atorvastatin (LIPITOR) 40 mg Oral Tablet Take 1 Tablet by mouth nightly.12/12/24 Yes Phil Larsen MD calcitRIOL (ROCALTROL) 0.25 mcg Oral Capsule TAKE 1 CAPSULE EVERY DAY10/16/24 Yes Selvin Longo MD carvediloL (COREG) 6.25 mg Oral Tablet Take 1 Tablet by mouth 2 timesdaily (with meals). 12/12/24 Yes Phil Larsen MD clopidogreL (PLAVIX) 75 mg Oral Tablet TAKE 1 TABLET EVERY DAY 05/03/24Yes Phil Larsen MD ergocalciferol (DRISDOL) 1,250 mcg (50,000 unit) Oral Capsule TAKE 1CAPSULE ONE TIME WEEKLY 08/23/24 Yes Selvin Longo MD isosorbide mononitrate (IMDUR) 60 mg Oral Tablet Sustained Release 24 hrTake 1 Tablet by mouth every morning. 11/02/24 Yes Phil Larsen MD tamsulosin (FLOMAX) 0.4 mg Oral Capsule, Sust. Release 24 hr Take bymouth daily. Yes Provider, Historical Inpatient Medications: aspirin 81 mg Oral Daily atorvastatin 40 mg Oral Nightly calcitRIOL 0.25 mcg Oral Daily carvediloL 6.25 mg Oral BID WM clopidogreL 75 mg Oral Daily isosorbide mononitrate 60 mg Oral QAM tamsulosin 0.4 mg Oral Daily Past Surgical History Past Surgical History: Procedure Laterality Date CORONARY PERCUTANEOUS INTERVENTION(PCI) N/A 05/16/2021 CORONARY PERCUTANEOUS INTERVENTION; Surgeon: Helen Braun MD;Location: ED [facility] TECH IMAGING; Service: Cardiac CYSTOSCOPY 11/29/2018 Surgeon: Zeke Mcginnis MD; Location: [facility] OR; Service: Urology URETEROSCOPY Left 11/29/2018 cystoscopy left ureteroscopy, left ureteral dilation, retrograde andstent insertion; Surgeon: Zeke Mcginnis MD; Location: [facility];Service: Urology Allergy Allergies Allergen Reactions Penicillins Hydralazine Other (See Comments) Low bp Patient Active Problem List Diagnosis HTN (hypertension) HLD (hyperlipidemia) Nephrolithiasis KATINA (acute kidney injury) Chronic systolic heart failure (HCC) 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 CKD (chronic kidney disease) stage 4, GFR 15-29 ml/min (HCC) S/P peripheral artery angioplasty S/P coronary artery stent placement Syncope and collapse Ischemic cardiomyopathy Sleep disturbance BP 158/80 (BP Location: Right arm, Patient Position: Semi Fowlers) Pulse 60 Temp 98 F (36.7 C) (Oral) Resp 16 Ht 5' 3 (1.6 m) Wt 156 lb (70.8 kg) SpO2 100% BMI 27.63 kg/m I/O 24 hours: Intake/Output Summary (Last 24 hours) at 02/07/2025 0841 Last data filed at 02/06/20252046 Gross per 24 hour Intake 240 ml Output -- Net 240 ml Diagnostic tests The most recent cardiovascular imaging studies available in [facility] EMR werereviewed at time of consultation Exam: Pt lying in bed in no distress. Head: Atraumatic, normocephalic. 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 Consider ILR if unrevealing. OK to tolerate higher BP. Consider decrease imdur to 30? Noted on flomax Further input from Dr. Johnnie Sanders, [facility] [place] Disposition Perspective - Medically Ready for Discharge: Yes Timeframe for F/U: 4 weeks Cardiology Follow-up Provider Name: Suzie To be arranged: Patient to call office Medication Recommendation: no changes Medication recommendation(s) as of date?: 02/07/25 Pt was seen in conjunction with a mid-level provider. I obtained the history from the patient. I personally examined this patient. I discussed the plan with pt and daughter at bedside. I placed orders in chart. At latter day, nodded off and slumped over on his grandsons shoulder onSunday. Lost consiousness. Mumble not making sence. Then came around in 10min when ambulance arrived. On exam VSS Neck no JVD CVS s1, s2 rrr RS no rales or rhonchi Abd soft + BS Ext no edema EKG by my interpretation:NSR, no dynamic ST changes. Labs noted Plan. Dizziness,syncope. Orthostasis IV fluids Monitor telemetry ASHD No cp Troponin elevation not indicative of ACS, chronic elevations noted. Med Rx. Normal EF on echo CKD Not in decompensated HF All d/w dtr in detail I personally performed medical decision making in its entirety. Salas Blair MD, [facility] EC ECHOCARDIOGRAM COMPLETE W DOPPLER AND COLOR FLOW MAPPING Routine 02/06/2025 9:24 AM EDT ECG AND WAVEFORMS - TELEMETRY Routine 02/06/2025 7:11 AM EDT CBC WITH DIFF EKATERINA 02/06/2025 3:42 AM EDT BASIC METABOLIC PANEL EKATERINA 02/06/2025 3:42 AM EDT ECG AND WAVEFORMS - TELEMETRY Routine 02/05/2025 7:57 PM EDT SCANNED EKG 02/05/2025 3:31 PM EDT VA US CAROTID DUPLEX BILATERAL Routine 02/05/2025 10:41 AM EDT ECG AND WAVEFORMS - TELEMETRY Routine 02/05/2025 7:00 AM EDT CBC WITH DIFF EKATERINA 02/05/2025 6:07 AM EDT BASIC METABOLIC PANEL EKATERINA 02/05/2025 6:07 AM EDT TROPONIN-T HIGH SENSITIVITY 6 HR EKATERINA 02/05/2025 12:45 AM EDT ECG AND WAVEFORMS - TELEMETRY Routine 02/04/2025 10:45 PM EDT TROPONIN-T HIGH SENSITIVITY 2HR Timed 02/04/2025 8:43 PM EDT TROPONIN-T HIGH SENSITIVITY BASELINE W/ REFLEX STAT 02/04/2025 6:46 PM EDT ADMIT Routine 02/04/2025 4:01 PM EDT BASIC METABOLIC PANEL STAT 02/04/2025 2:39 PM EDT CBC STAT 02/04/2025 2:39 PM EDT SALINE LOCK IV STAT 02/04/2025 2:22 PM EDT EK EKG 12 LEAD STAT 02/04/2025 12:08 PM EDT US RENAL AND BLADDER Routine 01/17/2025 9:07 AM EDT Stage 4 chronic kidney disease (HCC) Essential hypertension CREATININE CLEARANCE, URINE 24 HOUR Routine 01/17/2025 7:43 AM EDT Stage 4 chronic kidney disease (HCC) Essential hypertension CREATININE Routine 01/17/2025 7:43 AM EDT Stage 4 chronic kidney disease (HCC) Essential hypertension PROTEIN/CREATINI NE RATIO URINE Routine 01/17/2025 7:43 AM EDT Hypertension, unspecified type CREATININE LEVEL URINE Routine 01/17/2025 7:43 AM EDT Hypertension, unspecified type PROTEIN LEVEL URINE Routine 01/17/2025 7:43 AM EDT Hypertension, unspecified type URINALYSIS Routine 01/17/2025 7:43 AM EDT Hypertension, unspecified type VITAMIN D, 1,25-DIHYDROXY -REF LAB Routine 01/17/2025 7:43 AM EDT Hypertension, unspecified type VITAMIN B12/ FOLIC ACID Routine 01/17/2025 7:43 AM EDT Hypertension, unspecified type CREATININE CLEARANCE, URINE 24 HOUR Routine 01/17/2025 7:43 AM EDT Stage 4 chronic kidney disease (HCC) Essential hypertension CBC WITH DIFF Routine 01/17/2025 7:43 AM EDT Stage 4 chronic kidney disease (HCC) Essential hypertension Isolated proteinuria with minor glomerular abnormality MAGNESIUM LEVEL Routine 01/17/2025 7:43 AM EDT Stage 4 chronic kidney disease (HCC) Essential hypertension Isolated proteinuria with minor glomerular abnormality PHOSPHORUS LEVEL Routine 01/17/2025 7:43 AM EDT Stage 4 chronic kidney disease (HCC) Essential hypertension Isolated proteinuria with minor glomerular abnormality BASIC METABOLIC PANEL Routine 01/17/2025 7:43 AM EDT Stage 4 chronic kidney disease (HCC) Essential hypertension Isolated proteinuria with minor glomerular abnormality PROTEIN/CREATINI NE RATIO URINE Routine 12/13/2024 11:46 AM EST Stage 4 chronic kidney disease (HCC) Essential hypertension Isolated proteinuria with minor glomerular abnormality URINALYSIS Routine 12/13/2024 11:46 AM EST Stage 4 chronic kidney disease (HCC) Essential hypertension Isolated proteinuria with minor glomerular abnormality LIPID SCREEN Routine 12/13/2024 9:57 AM EST 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 Encounter to establish care Chronic systolic heart failure (HCC) Stage 3 chronic kidney disease, unspecified whether stage 3a or 3b CKD (HCC) PARATHYROID HORMONE INTACT Routine 12/13/2024 9:57 AM EST Stage 4 chronic kidney disease (HCC) Essential hypertension Isolated proteinuria with minor glomerular abnormality URIC ACID Routine 12/13/2024 9:57 AM EST Stage 4 chronic kidney disease (HCC) Essential hypertension Isolated proteinuria with minor glomerular abnormality CBC WITH DIFF Routine 12/13/2024 9:57 AM EST Stage 4 chronic kidney disease (HCC) Essential hypertension Isolated proteinuria with minor glomerular abnormality MAGNESIUM LEVEL Routine 12/13/2024 9:57 AM EST Stage 4 chronic kidney disease (HCC) Essential hypertension Isolated proteinuria with minor glomerular abnormality PHOSPHORUS LEVEL Routine 12/13/2024 9:57 AM EST Stage 4 chronic kidney disease (HCC) Essential hypertension Isolated proteinuria with minor glomerular abnormality BASIC METABOLIC PANEL Routine 12/13/2024 9:57 AM EST Stage 4 chronic kidney disease (HCC) Essential hypertension Isolated proteinuria with minor glomerular abnormality PARATHYROID HORMONE INTACT Routine 12/13/2024 9:57 AM EST Stage 4 chronic kidney disease (HCC) Essential hypertension Isolated proteinuria with minor glomerular abnormality VITAMIN D 25 HYDROXY Routine 12/13/2024 9:57 AM EST Stage 4 chronic kidney disease (HCC) Essential hypertension Isolated proteinuria with minor glomerular abnormality PROTEIN/CREATINI NE RATIO URINE Routine 09/13/2024 10:09 AM EST Stage 4 chronic kidney disease (HCC) Essential hypertension Isolated proteinuria with minor glomerular abnormality URINALYSIS Routine 09/13/2024 10:09 AM EST Stage 4 chronic kidney disease (HCC) Essential hypertension Isolated proteinuria with minor glomerular abnormality PARATHYROID HORMONE INTACT Routine 09/13/2024 9:55 AM EST Stage 4 chronic kidney disease (HCC) Essential hypertension Isolated proteinuria with minor glomerular abnormality URIC ACID Routine 09/13/2024 9:55 AM EST Stage 4 chronic kidney disease (HCC) Essential hypertension Isolated proteinuria with minor glomerular abnormality VITAMIN D 25 HYDROXY Routine 09/13/2024 9:55 AM EST Stage 4 chronic kidney disease (HCC) Essential hypertension Isolated proteinuria with minor glomerular abnormality CBC WITH DIFF Routine 09/13/2024 9:55 AM EST Stage 4 chronic kidney disease (HCC) Essential hypertension Isolated proteinuria with minor glomerular abnormality MAGNESIUM LEVEL Routine 09/13/2024 9:55 AM EST Stage 4 chronic kidney disease (HCC) Essential hypertension Isolated proteinuria with minor glomerular abnormality PHOSPHORUS LEVEL Routine 09/13/2024 9:55 AM EST Stage 4 chronic kidney disease (HCC) Essential hypertension Isolated proteinuria with minor glomerular abnormality BASIC METABOLIC PANEL Routine 09/13/2024 9:55 AM EST Stage 4 chronic kidney disease (HCC) Essential hypertension Isolated proteinuria with minor glomerular abnormality PROTEIN/CREATINI NE RATIO URINE Routine 06/08/2024 10:54 AM EDT Stage 4 chronic kidney disease (HCC) Essential hypertension Isolated proteinuria with minor glomerular abnormality URINALYSIS Routine 06/08/2024 10:54 AM EDT Stage 4 chronic kidney disease (HCC) Essential hypertension Isolated proteinuria with minor glomerular abnormality URIC ACID Routine 06/08/2024 9:36 AM EDT Stage 4 chronic kidney disease (HCC) Essential hypertension Isolated proteinuria with minor glomerular abnormality PARATHYROID HORMONE INTACT Routine 06/08/2024 9:36 AM EDT Stage 4 chronic kidney disease (HCC) Essential hypertension Isolated proteinuria with minor glomerular abnormality VITAMIN D 25 HYDROXY Routine 06/08/2024 9:36 AM EDT Stage 4 chronic kidney disease (HCC) Essential hypertension Isolated proteinuria with minor glomerular abnormality CBC WITH DIFF Routine 06/08/2024 9:36 AM EDT Stage 4 chronic kidney disease (HCC) Essential hypertension Isolated proteinuria with minor glomerular abnormality MAGNESIUM LEVEL Routine 06/08/2024 9:36 AM EDT Stage 4 chronic kidney disease (HCC) Essential hypertension Isolated proteinuria with minor glomerular abnormality PHOSPHORUS LEVEL Routine 06/08/2024 9:36 AM EDT Stage 4 chronic kidney disease (HCC) Essential hypertension Isolated proteinuria with minor glomerular abnormality BASIC METABOLIC PANEL Routine 06/08/2024 9:36 AM EDT Stage 4 chronic kidney disease (HCC) Essential hypertension Isolated proteinuria with minor glomerular abnormality PROTEIN/CREATINI NE RATIO URINE Routine 03/07/2024 10:08 AM EDT Chronic kidney disease, stage IV (severe) (HCC) URIC ACID Routine 03/07/2024 10:08 AM EDT Chronic kidney disease, stage IV (severe) (HCC) URINALYSIS Routine 03/07/2024 10:08 AM EDT Chronic kidney disease, stage IV (severe) (HCC) VITAMIN D 25 HYDROXY Routine 03/07/2024 10:08 AM EDT Chronic kidney disease, stage IV (severe) (HCC) PHOSPHORUS LEVEL Routine 03/07/2024 10:08 AM EDT Chronic kidney disease, stage IV (severe) (HCC) PARATHYROID HORMONE INTACT Routine 03/07/2024 10:08 AM EDT Chronic kidney disease, stage IV (severe) (HCC) MAGNESIUM LEVEL Routine 03/07/2024 10:08 AM EDT Chronic kidney disease, stage IV (severe) (HCC) CBC WITH DIFF Routine 03/07/2024 10:08 AM EDT Chronic kidney disease, stage IV (severe) (HCC) BASIC METABOLIC PANEL Routine 03/07/2024 10:08 AM EDT Chronic kidney disease, stage IV (severe) (HCC) EV EVENT MONITOR Routine 02/21/2024 5:30 PM EDT Syncope and collapse BASIC METABOLIC PANEL Routine 02/21/2024 2:59 PM EDT CBC WITH DIFF Routine 02/21/2024 2:59 PM EDT VA US CAROTID DUPLEX BILATERAL Routine 02/21/2024 1:47 PM EDT EC ECHOCARDIOGRAM 2D M MODE COMPLETE W CONTRAST Routine 02/21/2024 1:32 PM EDT SCANNED EKG 02/21/2024 11:06 AM EDT IP CONSULT TO CARDIOLOGY Routine 02/20/2024 10:12 PM EDT Procedure Note - Doug Foster MD - 02/21/2024 9:41 AM EDTThis note is in progress. Heart & Vascular Consult Note PATIENT: Naomy Jamison [id number] PCP: No Pcp, Per Patient Primary Freight Car Repairer: Dr. Larsen I would like to thank Erika Palma MD for requesting me to see Andrea Jamison for cardiac consultation for syncope. 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 Jamison presented to the ED with c/o syncope. Patient states that hewas out fishing with his son. Prior to this he was feeling well. He doesremember feeling sleepy. Son reports that he looked over and found himslumped over. He was unresponsive but breathing for around 10 minutes. Anurse was nearby and stated that his pulse felt fine. EMS arrived foundhis blood sugar to be 107. Patient states that he does recall EMS andeverything since. He currently has no complaints. He denies chest pain,dyspnea, dizziness, lightheadedness, or syncope. Past Medical History Past Medical History: Diagnosis Date Enlarged prostate Hyperlipemia Hypertension Prostate disorder Medication aspirin 81 mg Oral Daily atorvastatin 40 mg Oral Nightly calcitRIOL 0.25 mcg Oral Daily carvediloL 12.5 mg Oral BID WM clopidogreL 75 mg Oral Daily isosorbide mononitrate 60 mg Oral QAM tamsulosin 0.4 mg Oral Daily sodium chloride 0.9 % 100 mL/hr at 02/21/24 0414 acetaminophen, ondansetron OR ondansetron, sodium chloride 0.9%,sodium chloride 0.9% Past Surgical History Past Surgical History: Procedure Laterality Date CORONARY PERCUTANEOUS INTERVENTION(PCI) N/A 05/16/2021 CORONARY PERCUTANEOUS INTERVENTION; Surgeon: Helen Braun MD;Location: [facility]; Service: Cardiac CYSTOSCOPY 11/29/2018 Surgeon: Zeke Mcginnis MD; Location: [facility]; Service: Urology URETEROSCOPY Left 11/29/2018 cystoscopy left ureteroscopy, left ureteral dilation, retrograde andstent insertion; Surgeon: Zeke Mcginnis MD; Location: [facility];Service: Urology Allergy Allergies Allergen Reactions Penicillins Hydralazine Other (See Comments) Low bp Family History Family History Problem Relation Age of Onset Heart Disease Father Cancer Brother Social History Social History Tobacco Use Smoking status: Former Current packs/day: 0.00 Average packs/day: 2.0 packs/day for 39.0 years (78.0 ttl pk-yrs) Types: Cigarettes Start date: 11/28/1952 Quit date: 11/28/1991 Years since quittin.2 Smokeless tobacco: Former Types: Chew Quit date: 11/28/2015 Substance Use Topics Alcohol use: No Review of Systems No headache, no fever, no chills, no cough, no nausea or vomiting ordiarrhea, no burning micturation, no seizures, all other symptoms negativeand reviewed by me. Objective: Vitals: 02/21/24 0907 BP: Pulse: 60 Resp: Temp: SpO2: BP (!) 178/80 (BP Location: Left arm, Patient Position: Semi Fowlers) Pulse 60 Temp 98.2 F (36.8 C) (Oral) Resp 14 Ht 5' 4 (1.626 m) Wt 165 lb (74.8 kg) SpO2 97% BMI 28.32 kg/m Constituion: Pt lying in bed in no distress Head Atraumatic, normocephalic Eyes: No icterus Neck- No JVD, supple, no thyromegaly CVS- S1, S2 RRR RS- no rales, no rhonchi Abd- soft, non-tender, +BS Ext- no edema Neuro- Alert and oriented x 3 Skin warm and dry Psychiatry: mood and affect appropriate Diagnostic tests Lab Results Component Value Date WBC 8.1 02/20/2024 HGB 14.2 02/20/2024 HCT 43.4 02/20/2024 PLT 154 (L) 02/20/2024 Lab Results Component Value Date CREATININE 3.19 (H) 02/20/2024 BUN 40 (H) 02/20/2024 NA 140 02/20/2024 K 4.7 02/20/2024 CL 105 02/20/2024 CO2 22 02/20/2024 Lab Results Component Value Date CHOLESTEROL 118 06/02/2023 TRIG 210 (H) 06/02/2023 HDL 32 (L) 06/02/2023 LDLCALC 52 06/02/2023 Lab Results Component Value Date ALT 10 11/28/2018 AST 15 11/28/2018 No results found for: TSH , PSA No results found for: INR No results found for: CKTOTAL , CKMB , CKMBINDEX , TROPONINI Results for orders placed during the hospital encounter of 02/20/24 XR CHEST AP PORTABLE Narrative XR CHEST AP PORTABLE, 02/20/2024 1:08 PM CLINICAL HISTORY: -syncope COMPARISON: 11/28/2018 PROCEDURE COMMENTS: AP portable technique. FINDINGS: Support devices: No visible support devices. Heart and mediastinal contours within normal limits for technique.Unchanged asymmetric elevation of the left hemidiaphragm. No active failure,pneumonia, or visible effusion. No visible pneumothorax. Impression No acute finding. - Note: Radiology results need to be interpreted within a comprehensiveclinical context. If you have questions about the radiology report, please contactthe office of the ordering clinician. EKG by my interpretation: NSR, no dynamic ST changes. 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 D/W Dr. Foster. Vickie Crockett APRN Attending Freight Car Repairer Attestation: I have seen and examined the patient on 02/21/24. I have discussed with thenurse practitioner and agree with his/her findings as documented in theirnote with my additions below: 83 year old male with history of CAD, HFmrEF, HTN, HLD, CKD (3.1-3.2), BPHwho initially presented to the hospital on 02/19 with loss of consciousness.Cardiology consulted on 02/21/24 for syncope. He does not remember whathappened. Was out fishing with son. Was feeling sleepy. It was hot.Reportedly slumped over in seat. EMS called and by the time got back [facility] patient was more alert prior to EMS arriving. Otherwise hereports doing fine recently with shortness of breath only if over doingit. Also reports chest tightness with over doing it but this is stablefor the past year. Activities shuc as taking rash out or walking to themailbox cause dyspnea on exertion, but stable. Here with NTproBNP 936,troponins 36,32. Ecg sinus without ST abnormality. Troponins demandischemia. History of CAD with PCI 04/2021 with RYLEE to 99% prox RCA with [employer] MA[employer] prox LADmedically managed. Prior EF 40-45% in 2020 with subsequent recovery. TTE04/2022 with LVEF 50-55%, indeterminate diastology, basal inferior HKN/DKN,normal RV function. On exam today with RR, no JVD, clear lungs, Trace edema at the sock lineabove the ankles. Current cardiac related meds include asa, lipitor,coreg, plavix, imdur. Telemetry sinus without arrhythmia. TTE here todaywith LVEF 55-60%, G1DD, normal RV function. Plan: - No further cardiac work-up inpatient. 30 day event monitor. - Okay to stop plavix. Will sign off. Follow-up in office after completion of event monitor. Please call with any questions. Doug Foster MD [facility] TROPONIN-T HIGH SENSITIVITY 2HR Timed 02/20/2024 4:14 PM EDT ADMIT Routine 02/20/2024 3:33 PM EDT TSH REFLEX TO FT4 Routine 02/20/2024 2:08 PM EDT TROPONIN-T HIGH SENSITIVITY BASELINE W/ REFLEX STAT 02/20/2024 2:08 PM EDT BASIC METABOLIC PANEL STAT 02/20/2024 2:08 PM EDT CBC STAT 02/20/2024 2:08 PM EDT NT PROBNP STAT 02/20/2024 2:[address] HEAD WO CONTRAST STAT 02/20/2024 1:11 PM EDT XR CHEST AP PORTABLE EKATERINA 02/20/2024 1:08 PM EDT SALINE LOCK IV STAT 02/20/2024 12:58 PM EDT EK EKG 12 LEAD STAT 02/20/2024 12:42 PM EDT BASIC METABOLIC PANEL Routine 12/23/2023 9:43 AM EST Stage 4 chronic kidney disease (HCC) Essential hypertension Isolated proteinuria with minor glomerular abnormality PROTEIN/CREATINI NE RATIO URINE Routine 12/10/2023 11:03 AM EST Stage 4 chronic kidney disease (HCC) Essential hypertension Isolated proteinuria with minor glomerular abnormality URINALYSIS Routine 12/10/2023 11:03 AM EST Stage 4 chronic kidney disease (HCC) Essential hypertension Isolated proteinuria with minor glomerular abnormality PARATHYROID HORMONE INTACT Routine 12/10/2023 10:37 AM EST Stage 4 chronic kidney disease (HCC) Essential hypertension Isolated proteinuria with minor glomerular abnormality URIC ACID Routine 12/10/2023 10:37 AM EST Stage 4 chronic kidney disease (HCC) Essential hypertension Isolated proteinuria with minor glomerular abnormality VITAMIN D 25 HYDROXY Routine 12/10/2023 10:37 AM EST Stage 4 chronic kidney disease (HCC) Essential hypertension Isolated proteinuria with minor glomerular abnormality CBC WITH DIFF Routine 12/10/2023 10:37 AM EST Stage 4 chronic kidney disease (HCC) Essential hypertension Isolated proteinuria with minor glomerular abnormality MAGNESIUM LEVEL Routine 12/10/2023 10:37 AM EST Stage 4 chronic kidney disease (HCC) Essential hypertension Isolated proteinuria with minor glomerular abnormality PHOSPHORUS LEVEL Routine 12/10/2023 10:37 AM EST Stage 4 chronic kidney disease (HCC) Essential hypertension Isolated proteinuria with minor glomerular abnormality BASIC METABOLIC PANEL Routine 12/10/2023 10:37 AM EST Stage 4 chronic kidney disease (HCC) Essential hypertension Isolated proteinuria with minor glomerular abnormality URIC ACID Routine 09/06/2023 10:54 AM EST Chronic kidney disease, stage IV (severe) (HCC) PROTEIN/CREATINI NE RATIO URINE Routine 09/06/2023 10:54 AM EST Chronic kidney disease, stage IV (severe) (HCC) URINALYSIS Routine 09/06/2023 10:54 AM EST Chronic kidney disease, stage IV (severe) (HCC) VITAMIN D 25 HYDROXY Routine 09/06/2023 10:54 AM EST Chronic kidney disease, stage IV (severe) (HCC) PHOSPHORUS LEVEL Routine 09/06/2023 10:54 AM EST Chronic kidney disease, stage IV (severe) (HCC) PARATHYROID HORMONE INTACT Routine 09/06/2023 10:54 AM EST Chronic kidney disease, stage IV (severe) (HCC) MAGNESIUM LEVEL Routine 09/06/2023 10:54 AM EST Chronic kidney disease, stage IV (severe) (HCC) CBC WITH DIFF Routine 09/06/2023 10:54 AM EST Chronic kidney disease, stage IV (severe) (HCC) BASIC METABOLIC PANEL Routine 09/06/2023 10:54 AM EST Chronic kidney disease, stage IV (severe) (HCC) POCT EKG Routine 07/27/2023 1:41 PM EDT 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 URINALYSIS Routine 06/02/2023 1:32 PM EDT Stage 4 chronic kidney disease (HCC) Essential hypertension PROTEIN/CREATINI NE RATIO URINE Routine 06/02/2023 1:32 PM EDT Stage 4 chronic kidney disease (HCC) Essential hypertension PARATHYROID HORMONE INTACT Routine 06/02/2023 1:32 PM EDT Stage 4 chronic kidney disease (HCC) Essential hypertension VITAMIN D, 1,25-DIHYDROXY -REF LAB Routine 06/02/2023 1:32 PM EDT Stage 4 chronic kidney disease (HCC) Essential hypertension VITAMIN D 25 HYDROXY Routine 06/02/2023 1:32 PM EDT Stage 4 chronic kidney disease (HCC) Essential hypertension MAGNESIUM LEVEL Routine 06/02/2023 1:32 PM EDT Stage 4 chronic kidney disease (HCC) Essential hypertension PHOSPHORUS LEVEL Routine 06/02/2023 1:32 PM EDT Stage 4 chronic kidney disease (HCC) Essential hypertension URIC ACID Routine 06/02/2023 1:32 PM EDT Stage 4 chronic kidney disease (HCC) Essential hypertension CBC Routine 06/02/2023 1:32 PM EDT Stage 4 chronic kidney disease (HCC) Essential hypertension BASIC METABOLIC PANEL Routine 06/02/2023 1:32 PM EDT Stage 4 chronic kidney disease (HCC) Essential hypertension LIPID SCREEN Routine 06/02/2023 1:32 PM EDT Hyperlipidemia, unspecified hyperlipidemia type PROTEIN/CREATINI NE RATIO URINE Routine 03/02/2023 10:13 AM EDT Chronic kidney disease, stage IV (severe) (HCC) URIC ACID Routine 03/02/2023 10:13 AM EDT Chronic kidney disease, stage IV (severe) (HCC) URINALYSIS Routine 03/02/2023 10:13 AM EDT Chronic kidney disease, stage IV (severe) (HCC) VITAMIN D 25 HYDROXY Routine 03/02/2023 10:13 AM EDT Chronic kidney disease, stage IV (severe) (HCC) PHOSPHORUS LEVEL Routine 03/02/2023 10:13 AM EDT Chronic kidney disease, stage IV (severe) (HCC) PARATHYROID HORMONE INTACT Routine 03/02/2023 10:13 AM EDT Chronic kidney disease, stage IV (severe) (HCC) MAGNESIUM LEVEL Routine 03/02/2023 10:13 AM EDT Chronic kidney disease, stage IV (severe) (HCC) CBC WITH DIFF Routine 03/02/2023 10:13 AM EDT Chronic kidney disease, stage IV (severe) (HCC) BASIC METABOLIC PANEL Routine 03/02/2023 10:13 AM EDT Chronic kidney disease, stage IV (severe) (HCC) PARATHYROID HORMONE INTACT Routine 10/28/2022 9:44 AM EST Stage 4 chronic kidney disease (HCC) Essential hypertension, malignant Isolated proteinuria with minor glomerular abnormality URIC ACID Routine 10/28/2022 9:44 AM EST Stage 4 chronic kidney disease (HCC) Essential hypertension, malignant Isolated proteinuria with minor glomerular abnormality VITAMIN D 25 HYDROXY Routine 10/28/2022 9:44 AM EST Stage 4 chronic kidney disease (HCC) Essential hypertension, malignant Isolated proteinuria with minor glomerular abnormality PROTEIN/CREATINI NE RATIO URINE Routine 10/28/2022 9:44 AM EST Stage 4 chronic kidney disease (HCC) Essential hypertension, malignant Isolated proteinuria with minor glomerular abnormality URINALYSIS Routine 10/28/2022 9:44 AM EST Stage 4 chronic kidney disease (HCC) Essential hypertension, malignant Isolated proteinuria with minor glomerular abnormality CBC WITH DIFF Routine 10/28/2022 9:44 AM EST Stage 4 chronic kidney disease (HCC) Essential hypertension, malignant Isolated proteinuria with minor glomerular abnormality MAGNESIUM LEVEL Routine 10/28/2022 9:44 AM EST Stage 4 chronic kidney disease (HCC) Essential hypertension, malignant Isolated proteinuria with minor glomerular abnormality PHOSPHORUS LEVEL Routine 10/28/2022 9:44 AM EST Stage 4 chronic kidney disease (HCC) Essential hypertension, malignant Isolated proteinuria with minor glomerular abnormality BASIC METABOLIC PANEL Routine 10/28/2022 9:44 AM EST Stage 4 chronic kidney disease (HCC) Essential hypertension, malignant Isolated proteinuria with minor glomerular abnormality POCT EKG Routine 07/14/2022 1:17 PM EDT 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 PARATHYROID HORMONE INTACT Routine 07/02/2022 10:43 AM EDT Stage 4 chronic kidney disease (HCC) Essential hypertension, malignant Isolated proteinuria with minor glomerular abnormality URIC ACID Routine 07/02/2022 10:43 AM EDT Stage 4 chronic kidney disease (HCC) Essential hypertension, malignant Isolated proteinuria with minor glomerular abnormality VITAMIN D 25 HYDROXY Routine 07/02/2022 10:43 AM EDT Stage 4 chronic kidney disease (HCC) Essential hypertension, malignant Isolated proteinuria with minor glomerular abnormality PROTEIN/CREATINI NE RATIO URINE Routine 07/02/2022 10:43 AM EDT Stage 4 chronic kidney disease (HCC) Essential hypertension, malignant Isolated proteinuria with minor glomerular abnormality URINALYSIS Routine 07/02/2022 10:43 AM EDT Stage 4 chronic kidney disease (HCC) Essential hypertension, malignant Isolated proteinuria with minor glomerular abnormality CBC WITH DIFF Routine 07/02/2022 10:43 AM EDT Stage 4 chronic kidney disease (HCC) Essential hypertension, malignant Isolated proteinuria with minor glomerular abnormality MAGNESIUM LEVEL Routine 07/02/2022 10:43 AM EDT Stage 4 chronic kidney disease (HCC) Essential hypertension, malignant Isolated proteinuria with minor glomerular abnormality PHOSPHORUS LEVEL Routine 07/02/2022 10:43 AM EDT Stage 4 chronic kidney disease (HCC) Essential hypertension, malignant Isolated proteinuria with minor glomerular abnormality BASIC METABOLIC PANEL Routine 07/02/2022 10:43 AM EDT Stage 4 chronic kidney disease (HCC) Essential hypertension, malignant Isolated proteinuria with minor glomerular abnormality EC ECHOCARDIOGRAM COMPLETE W DOPPLER AND COLOR FLOW MAPPING Routine 05/04/2022 2:30 PM EDT S/P coronary artery stent placement 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 Chronic systolic heart failure (HCC) URIC ACID Routine 03/31/2022 2:13 PM EDT Stage 4 chronic kidney disease (HCC) Essential hypertension, malignant Isolated proteinuria with minor glomerular abnormality VITAMIN D 25 HYDROXY Routine 03/31/2022 2:13 PM EDT Stage 4 chronic kidney disease (HCC) Essential hypertension, malignant Isolated proteinuria with minor glomerular abnormality PROTEIN/CREATINI NE RATIO URINE Routine 03/31/2022 2:13 PM EDT Stage 4 chronic kidney disease (HCC) Essential hypertension, malignant Isolated proteinuria with minor glomerular abnormality URINALYSIS Routine 03/31/2022 2:13 PM EDT Stage 4 chronic kidney disease (HCC) Essential hypertension, malignant Isolated proteinuria with minor glomerular abnormality CBC WITH DIFF Routine 03/31/2022 2:13 PM EDT Stage 4 chronic kidney disease (HCC) Essential hypertension, malignant Isolated proteinuria with minor glomerular abnormality MAGNESIUM LEVEL Routine 03/31/2022 2:13 PM EDT Stage 4 chronic kidney disease (HCC) Essential hypertension, malignant Isolated proteinuria with minor glomerular abnormality PHOSPHORUS LEVEL Routine 03/31/2022 2:13 PM EDT Stage 4 chronic kidney disease (HCC) Essential hypertension, malignant Isolated proteinuria with minor glomerular abnormality BASIC METABOLIC PANEL Routine 03/31/2022 2:13 PM EDT Stage 4 chronic kidney disease (HCC) Essential hypertension, malignant Isolated proteinuria with minor glomerular abnormality LIPID PANEL REFLEX Routine 02/18/2022 8:17 AM EDT S/P coronary artery stent placement 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 URIC ACID Routine 12/11/2021 10:53 AM EST Stage 4 chronic kidney disease (HCC) Essential hypertension, malignant Isolated proteinuria with minor glomerular abnormality VITAMIN D 25 HYDROXY Routine 12/11/2021 10:53 AM EST Stage 4 chronic kidney disease (HCC) Essential hypertension, malignant Isolated proteinuria with minor glomerular abnormality PROTEIN/CREATINI NE RATIO URINE Routine 12/11/2021 10:53 AM EST Stage 4 chronic kidney disease (HCC) Essential hypertension, malignant Isolated proteinuria with minor glomerular abnormality URINALYSIS Routine 12/11/2021 10:53 AM EST Stage 4 chronic kidney disease (HCC) Essential hypertension, malignant Isolated proteinuria with minor glomerular abnormality CBC WITH DIFF Routine 12/11/2021 10:53 AM EST Stage 4 chronic kidney disease (HCC) Essential hypertension, malignant Isolated proteinuria with minor glomerular abnormality MAGNESIUM LEVEL Routine 12/11/2021 10:53 AM EST Stage 4 chronic kidney disease (HCC) Essential hypertension, malignant Isolated proteinuria with minor glomerular abnormality PHOSPHORUS LEVEL Routine 12/11/2021 10:53 AM EST Stage 4 chronic kidney disease (HCC) Essential hypertension, malignant Isolated proteinuria with minor glomerular abnormality BASIC METABOLIC PANEL Routine 12/11/2021 10:53 AM EST Stage 4 chronic kidney disease (HCC) Essential hypertension, malignant Isolated proteinuria with minor glomerular abnormality URIC ACID Routine 09/10/2021 11:32 AM EST Stage 4 chronic kidney disease (HCC) Essential hypertension, malignant Isolated proteinuria with minor glomerular abnormality VITAMIN D, 1,25-DIHYDROXY -REF LAB Routine 09/10/2021 11:32 AM EST Stage 4 chronic kidney disease (HCC) Essential hypertension, malignant Isolated proteinuria with minor glomerular abnormality VITAMIN D 25 HYDROXY Routine 09/10/2021 11:32 AM EST Stage 4 chronic kidney disease (HCC) Essential hypertension, malignant Isolated proteinuria with minor glomerular abnormality PARATHYROID HORMONE INTACT Routine 09/10/2021 11:32 AM EST Stage 4 chronic kidney disease (HCC) Essential hypertension, malignant Isolated proteinuria with minor glomerular abnormality PROTEIN/CREATINI NE RATIO URINE Routine 09/10/2021 11:32 AM EST Stage 4 chronic kidney disease (HCC) Essential hypertension, malignant Isolated proteinuria with minor glomerular abnormality URINALYSIS Routine 09/10/2021 11:32 AM EST Stage 4 chronic kidney disease (HCC) Essential hypertension, malignant Isolated proteinuria with minor glomerular abnormality CBC WITH DIFF Routine 09/10/2021 11:32 AM EST Stage 4 chronic kidney disease (HCC) Essential hypertension, malignant Isolated proteinuria with minor glomerular abnormality MAGNESIUM LEVEL Routine 09/10/2021 11:32 AM EST Stage 4 chronic kidney disease (HCC) Essential hypertension, malignant Isolated proteinuria with minor glomerular abnormality PHOSPHORUS LEVEL Routine 09/10/2021 11:32 AM EST Stage 4 chronic kidney disease (HCC) Essential hypertension, malignant Isolated proteinuria with minor glomerular abnormality BASIC METABOLIC PANEL Routine 09/10/2021 11:32 AM EST Stage 4 chronic kidney disease (HCC) Essential hypertension, malignant Isolated proteinuria with minor glomerular abnormality PHOSPHORUS LEVEL Routine 07/31/2021 11:19 AM EDT Stage 3 chronic kidney disease, unspecified whether stage 3a or 3b CKD (HCC) Essential hypertension, malignant MAGNESIUM LEVEL Routine 07/31/2021 11:19 AM EDT Stage 3 chronic kidney disease, unspecified whether stage 3a or 3b CKD (HCC) Essential hypertension, malignant CBC WITH DIFF Routine 07/31/2021 11:19 AM EDT Stage 3 chronic kidney disease, unspecified whether stage 3a or 3b CKD (HCC) Essential hypertension, malignant BASIC METABOLIC PANEL Routine 07/31/2021 11:19 AM EDT Stage 3 chronic kidney disease, unspecified whether stage 3a or 3b CKD (HCC) Essential hypertension, malignant URIC ACID Routine 06/27/2021 9:43 AM EDT Stage 4 chronic kidney disease (HCC) Essential hypertension VITAMIN D, 1,25-DIHYDROXY -REF LAB Routine 06/27/2021 9:43 AM EDT Stage 4 chronic kidney disease (HCC) Essential hypertension VITAMIN D 25 HYDROXY Routine 06/27/2021 9:43 AM EDT Stage 4 chronic kidney disease (HCC) Essential hypertension PARATHYROID HORMONE INTACT Routine 06/27/2021 9:43 AM EDT Stage 4 chronic kidney disease (HCC) Essential hypertension PROTEIN/CREATINI NE RATIO URINE Routine 06/27/2021 9:43 AM EDT Stage 4 chronic kidney disease (HCC) Essential hypertension URINALYSIS Routine 06/27/2021 9:43 AM EDT Stage 4 chronic kidney disease (HCC) Essential hypertension CBC WITH DIFF Routine 06/27/2021 9:43 AM EDT Stage 4 chronic kidney disease (HCC) Essential hypertension MAGNESIUM LEVEL Routine 06/27/2021 9:43 AM EDT Stage 4 chronic kidney disease (HCC) Essential hypertension PHOSPHORUS LEVEL Routine 06/27/2021 9:43 AM EDT Stage 4 chronic kidney disease (HCC) Essential hypertension BASIC METABOLIC PANEL Routine 06/27/2021 9:43 AM EDT Stage 4 chronic kidney disease (HCC) Essential hypertension LIPID SCREEN Routine 06/19/2021 2:20 PM EDT 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 ECG AND WAVEFORMS - TELEMETRY Routine 05/17/2021 7:00 AM EDT BASIC METABOLIC PANEL Timed 05/17/2021 5:56 AM EDT ECG AND WAVEFORMS - TELEMETRY Routine 05/16/2021 7:00 PM EDT ECG AND WAVEFORMS - TELEMETRY Routine 05/16/2021 1:55 PM EDT IP CONSULT TO NUTRITION Routine 05/16/2021 1:00 PM EDT IP CONSULT TO CASE MANAGEMENT Routine 05/16/2021 1:00 PM EDT IP CONSULT TO PHARMACY Routine 05/16/2021 1:00 PM EDT CARDIAC PROCEDURE Routine 05/16/2021 12:57 PM EDT Coronary artery disease involving [place] coronary artery of [place] heart with other form of angina pectoris (HCC) CORONARY PERCUTANEOUS INTERVENTION(PCI ) Routine 05/16/2021 12:57 PM EDT Coronary artery disease involving [place] coronary artery of [place] heart with other form of angina pectoris (HCC) ACTIVATED CLOTTING TIME LR POC Routine 05/16/2021 12:39 PM EDT MENTAL HEALTH TECH HEMODYNAMIC WAVEFORMS Routine 05/16/2021 12:03 PM EDT ADMIT Routine 05/16/2021 9:16 AM EDT CBC Routine 05/14/2021 11:51 AM EDT Coronary artery disease involving [place] coronary artery of [place] heart with other form of angina pectoris (HCC) BASIC METABOLIC PANEL Routine 05/14/2021 11:51 AM EDT Coronary artery disease involving [place] coronary artery of [place] heart with other form of angina pectoris (HCC) CBC WITH DIFF Routine 04/25/2021 10:54 AM EDT Stage 3a chronic kidney disease (HCC) BASIC METABOLIC PANEL Routine 04/25/2021 10:54 AM EDT Stage 3a chronic kidney disease (HCC) CARDIAC PROCEDURE Routine 04/11/2021 5:15 PM EDT Arteriosclerotic heart disease (ASHD) Dyspnea on exertion CARDIAC PROCEDURE Routine 04/11/2021 5:15 PM EDT Arteriosclerotic heart disease (ASHD) Dyspnea on exertion MENTAL HEALTH TECH HEMODYNAMIC WAVEFORMS Routine 04/11/2021 4:36 PM EDT CBC Routine 04/08/2021 3:17 PM EDT Chronic systolic heart failure (HCC) BASIC METABOLIC PANEL Routine 04/08/2021 3:17 PM EDT Chronic systolic heart failure (HCC) SCANNED LABS 04/07/2021 3:15 PM EDT URINALYSIS Routine 04/02/2021 11:46 AM EDT Stage 4 chronic kidney disease (HCC) Essential hypertension PROTEIN/CREATINI NE RATIO URINE Routine 04/02/2021 11:46 AM EDT Stage 4 chronic kidney disease (HCC) Essential hypertension URIC ACID Routine 04/02/2021 11:33 AM EDT Stage 4 chronic kidney disease (HCC) Essential hypertension VITAMIN D, 1,25-DIHYDROXY -REF LAB Routine 04/02/2021 11:33 AM EDT Stage 4 chronic kidney disease (HCC) Essential hypertension VITAMIN D 25 HYDROXY Routine 04/02/2021 11:33 AM EDT Stage 4 chronic kidney disease (HCC) Essential hypertension PARATHYROID HORMONE INTACT Routine 04/02/2021 11:33 AM EDT Stage 4 chronic kidney disease (HCC) Essential hypertension CBC WITH DIFF Routine 04/02/2021 11:33 AM EDT Stage 4 chronic kidney disease (HCC) Essential hypertension MAGNESIUM LEVEL Routine 04/02/2021 11:33 AM EDT Stage 4 chronic kidney disease (HCC) Essential hypertension PHOSPHORUS LEVEL Routine 04/02/2021 11:33 AM EDT Stage 4 chronic kidney disease (HCC) Essential hypertension BASIC METABOLIC PANEL Routine 04/02/2021 11:33 AM EDT Stage 4 chronic kidney disease (HCC) Essential hypertension US RENAL AND BLADDER STAT 04/01/2021 4:45 PM EDT Kidney stones NM MYOCARDIAL REST SPECT ONLY FOR PET Routine 03/14/2021 10:26 AM EDT Encounter to establish care Chronic systolic heart failure (HCC) 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 Stage 3 chronic kidney disease, unspecified whether stage 3a or 3b CKD (HCC) PET HEART VIABILITY Routine 03/13/2021 10:43 AM EDT Encounter to establish care Chronic systolic heart failure (HCC) 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 Stage 3 chronic kidney disease, unspecified whether stage 3a or 3b CKD (HCC) GLUCOSE METER POC Routine 03/13/2021 9:23 AM EDT EC ECHOCARDIOGRAM 2D M MODE COMPLETE W CONTRAST Routine 03/11/2021 8:42 AM EDT Encounter to establish care Chronic systolic heart failure (HCC) 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 Stage 3 chronic kidney disease, unspecified whether stage 3a or 3b CKD (HCC) POCT EKG Routine 02/28/2021 2:33 PM EDT Encounter to establish care URINALYSIS STAT 12/07/2018 7:17 AM EST EXTRA DIAZ URINE CX STAT 12/07/2018 7:17 AM EST SCANNED RHYTHM STRIPS 12/01/2018 4:20 PM EST SCANNED EKG 11/30/2018 9:34 AM EST CBC Early AM 11/30/2018 6:48 AM EST BASIC METABOLIC PANEL Early AM 11/30/2018 6:48 AM EST CBC Early AM 11/29/2018 11:00 AM EST BASIC METABOLIC PANEL Early AM 11/29/2018 11:00 AM EST INTRAOP AIRWAY PLACEMENT Routine 11/29/2018 9:08 AM EST CYSTOSCOPY URETHRAL DILATATION 11/29/2018 8:58 AM EST Hydronephrosis with urinary obstruction due to ureteral calculus CYSTOSCOPY, URETEROSCOPY, LASER LITHOTRIPSY, RETROGRADE PYELOGRAM, STENT INSERTION 11/29/2018 8:58 AM EST Hydronephrosis with urinary obstruction due to ureteral calculus IP CONSULT TO UROLOGY Routine 11/28/2018 7:11 PM EST Procedure Note - Zeke Mcginnis MD - 11/29/2018 8:17 AM ESTThis note is in progress. Images from the original note were not included. Urology Attending Consult Note Date:11/29/2018 Patient name:Naomy Jamison :1940 MR# [id number] Reason for Consultation: left ureteral stone History: 77 y.o. male who presented to the emergency department yesterdayfor left-sided flank pain. Patient states pain started over the weekend.Pain has been intermittent. States a dull aching type pain. Usuallyrelieved with ibuprofen eventually, the patient states that also willspontaneously resolve as well. He has not noted any dysuria or hematuria.Pain does not radiate. Does have history of enlarged prostate but hasnot had any problems with urinary stream. Patient denies fever. Deniesnausea or vomiting. Has noted occasional cough that is nonproductive.Denies chest pain or shortness of breath. Denies abdominal pain. Patientstates he did fall about a week ago landing on his low back, and initiallyhad some pain but pain resolved. States this episode is related tocurrent pain. No exacerbating factors. CT shows a 4 mm left ureteralstone. Past Medical History: Past Medical History: Diagnosis Date Enlarged prostate Hyperlipemia Hypertension Prostate disorder Surgical History: History reviewed. No pertinent surgical history. Social History: reports that he quit smoking about 27 years ago. Hissmoking use included Cigarettes. He started smoking about 66 years ago. Hehas a 50.00 pack-year smoking history. He quit smokeless tobacco use about3 years ago. His smokeless tobacco use included Chew. He reports that hedoes not drink alcohol or use drugs. Family History: family history includes Cancer in his brother; HeartDisease in his father. Allergies: is allergic to penicillins. ROS - ER note and H and P reviewed and I agree. 12 point ROS otherwisenegative Prescriptions Prior to Admission Medication Sig Dispense Refill Last Dose aspirin 81 mg Oral Tablet, Chewable Take 81 mg by mouth daily.11/28/2018 at 0800 hydrochlorothiazide (HYDRODIURIL) 25 mg Oral Tablet Take 25 mg by mouth2 times daily. 11/28/2018 at 0800 tamsulosin (FLOMAX) 0.4 mg Oral Capsule, Sust. Release 24 hr Take bymouth daily. 11/27/2018 at 2100 Vitals: Vitals: 11/28/182016 BP: 141/82 Pulse: 64 Resp: 16 Temp: 97.6 F (36.4 C) SpO2: 99% Intake/Output Summary (Last 24 hours) at 11/29/18 0818 Last data filed at 11/29/18 0520 Gross per 24 hour Intake 1043.43 ml Output 0 ml Net 1043.43 ml Physical: Well developed, well nourished in no acute distress Mood indicates no abnormalities. Pt doesn t appear depressed Orientated to time and place Neck is supple, trachea is midline Respiratory effort is normal Cardiovascular show no extremity swelling Abdomen no masses or hernias are palpated, there is LLQ tenderness.Liver and Spleen appear normal. (counts for 3 points) Skin show no abnormal lesions Lymph nodes are not palpated in the inguinal, neck, or axillary area. Musculoskeletal strength normal throughout Male : Penis appears normal and uncircumcised Urethral meatus is normal in size and location Scrotum appears normal and both testicles appear normal in size andlocation Sphincter has good tone Anus is inspected. There are no perineal masses Prostate is anodular, no tenderness and no induration Seminal Vesicles are not palpable Labs: UA Lab Results Component Value Date SPECGRAV 1.013 11/28/2018 UAPROTEIN 30 (A) 11/28/2018 BLOODU Moderate (A) 11/28/2018 NITRITE Negative 11/28/2018 LEUKOCYTESUR Negative 11/28/2018 WBCUA 2 11/28/2018 RBCUA 9 (H) 11/28/2018 CBC: Recent Labs 11/28/18 1650 WBC 9.1 HGB 15.7 HCT 46.2 MCV 89.2 MCHC 33.9 RDW 13.6 PLT 197 BMP: Recent Labs 11/28/18 1650 NA 136 K 4.8 CL 102 CO2 19* BUN 43* CREATININE 3.28* CALCIUM 8.9 Imaging: Xr Chest Pa And Lateral Result Date: 11/28/2018 PA AND LATERAL CHEST X-RAY, 11/28/2018 5:20 PM CLINICAL HISTORY: -FLANKPAIN COMPARISON: Portable chest from 09/25/2014 PROCEDURE COMMENTS:Frontal and lateral views of the chest. FINDINGS: Heart size, mediastinalcontours, and moderate asymmetric elevation of the left diaphragm are notsignificantly changed. Aortic calcification suspected. The lungs are clearof confluent airspace opacity. Multiple gas-filled bowel loops underliethe elevated left diaphragm. No pneumothorax or pleural effusion isidentified. No acute abnormality is identified in the chest. Xr Lumbar Spine Ap And Lateral Result Date: 11/28/2018 XR LUMBAR SPINE AP AND LATERAL, 11/28/2018 5:29 PM CLINICAL HISTORY:-FLANK PAIN COMPARISON: Referral is made to abdomen and pelvis CT from11/28/2018, which has been reported separately PROCEDURE COMMENTS: 3 viewslumbar spine per protocol. FINDINGS: There are 5 lumbar vertebral bodies.There is mild to moderate S shaped curvature of the lumbar spine on the APview. There is straightening of the lumbar spine in the lateralprojection. No fracture or subluxation is identified. There are multiplelevels of advanced disc space narrowing and hypertrophic endplate change,greatest and moderate to severe at L2-3, L4-5, and L5-S1. Hypertrophicfacet changes are greatest caudally. There is atheroscleroticcalcification of the abdominal aorta. Distal left ureteral calculus isbetter evaluated on recent CT. 1. No acute osseous abnormality is identified in the lumbar spine. 2.Multilevel degenerative changes, as detailed above. Xr Abdomen Ap Result Date: 11/28/2018 CR, ABDOMEN AP, 11/28/2018 6:27 PM CLINICAL HISTORY: -FLANK PAINCOMPARISON: None. PROCEDURE COMMENTS: AP view(s) of the abdomen perprotocol. FINDINGS: Gas pattern is nonobstructive but otherwisenonspecific. Degenerative changes of the spine and hips. No suspiciouscalcifications visualized. No acute finding. Ek Ekg 12 Lead Result Date: 11/28/2018 NOTICE: Preliminary tracing available for review; Final Interpretation byphysician to follow. Stationary ECG StudySt. Charlene BergInterpretive Statements SINUSRHYTHM normal ECG Electronically Signed On 11-28-2018 20:02:03 EST by MD Pipe Ct Abdomen Pelvis Wo Oral Or Iv Contrast Result Date: 11/28/2018 CT ABDOMEN AND PELVIS WITHOUT IV OR ORAL CONTRAST, 11/28/2018 5:00 PMCLINICAL HISTORY: -Flank pain, stone known or suspected COMPARISON:None. PROCEDURE COMMENTS: Noncontrast multidetector CT examination of theabdomen and pelvis without IV or oral contrast per protocol. Multiplanarreconstructions. Automated exposure control for dose reduction was used.CTDIvol: 7.0 mGy. DLP: 353 mGy-cm. FINDINGS: Elevation left hemidiaphragmwith associated atelectasis. Lungs are otherwise clear. The liver,gallbladder, pancreas, spleen, and adrenals are unremarkable. There ismild/moderate left hydronephrosis and hydroureter secondary to a 3 x 4 mmstone in the distal left ureter just above the level of theureterovesicular junction. No other renal or ureteral calculi demonstrate.Bladder is largely collapsed, grossly normal. Prostate gland is massivelyenlarged. The small and large bowel are normal in caliber withoutobstruction or wall thickening. Appendix is normal in the right lowerquadrant. No free fluid or suspicious lymphadenopathy. Moderateatherosclerotic calcification throughout the aorta and branch vessels. Nosuspicious osseous lesion. 3 x 4 mm stone in the distal left ureter with mild/moderate hydronephrosisabove. Impression/Plan: Left ureteral stone - options d/w pt, including stone passage,ureteroscopy, Risks reviewed, including failure to get stone, injury tourethra, ureter, bladder, kidney, possibility of stent, stent symptoms, AK/ dvt/PE, , cva. Pt wishes to proceed. Zeke Mcginnis MD XR ABDOMEN AP EKATERINA 11/28/2018 6:27 PM EST XR LUMBAR SPINE AP AND LATERAL EKATERINA 11/28/2018 5:29 PM EST XR CHEST PA AND LATERAL EKATERINA 11/28/2018 5:[address] ABDOMEN PELVIS WO ORAL OR IV CONTRAST STAT 11/28/2018 5:00 PM EST URINALYSIS STAT 11/28/2018 4:58 PM EST EXTRA DIAZ URINE CX STAT 11/28/2018 4:58 PM EST EK EKG 12 LEAD STAT 11/28/2018 4:54 PM EST LACTIC ACID STAT 11/28/2018 4:50 PM EST COMPREHENSIVE METABOLIC PANEL STAT 11/28/2018 4:50 PM EST CBC WITH DIFF STAT 11/28/2018 4:50 PM EST SCANNED EKG 09/30/2014 9:39 PM EST SCANNED RADIOLOGY REPORT 09/26/2014 1:01 PM EST SCANNED RHYTHM STRIPS 09/26/2014 11:30 AM EST NM MYOCARDIAL PERFUSION SPECT STRESS AND REST STAT 09/26/2014 10:[address] STRESS TEST EXERCISE STAT 09/26/2014 9:55 AM EST EK EKG 12 LEAD Routine 09/26/2014 7:46 AM EST BASIC METABOLIC PANEL Routine 09/26/2014 6:06 AM EST EK EKG 12 LEAD STAT 09/25/2014 8:01 PM EST SCANNED RHYTHM STRIPS 09/25/2014 7:54 PM EST TROPONIN-T Timed 09/25/2014 5:30 PM EST VA US CAROTID DUPLEX BILATERAL STAT 09/25/2014 2:00 PM EST TROPONIN-T STAT 09/25/2014 12:58 PM EST XR CHEST AP PORTABLE EKATERINA 09/25/2014 12:20 PM EST DIFFERENTIAL STAT 09/25/2014 11:00 AM EST TROPONIN-T STAT 09/25/2014 11:00 AM EST NT PROBNP STAT 09/25/2014 11:00 AM EST BASIC METABOLIC PANEL STAT 09/25/2014 11:00 AM EST CBC WITH DIFF STAT 09/25/2014 11:00 AM EST Results * ECG AND WAVEFORMS - TELEMETRY (02/08/2025 7:00 AM EDT) Only the most recent of10 resultswithin the time period is included. ECG INTERPRET NSR [facility] 02/08/2025 7:00 AM EDT Narrative [facility] - 02/08/2025 7:36 AM EDT KS ROUTINE MT 0.20 QRS 0.10 RR 0.95 QT 0.39 See Clinical Report link for waveform capture us Unknown Provider POINT OF CARE CARDIOLOGY Final Result [facility] [address] [place] [address] * (ABNORMAL) CBC WITH DIFF (02/07/2025 3:27 AM EDT) Only the most recent of23 resultswithin the time period is included. WBC 7.2 3.7 - 10.3 x10(3)/mcL 02/07/2025 4:35 AM EDT [facility] RBC 4.16(L) 4.60 - 6.10 x10(6)/mcL 02/07/2025 4:35 AM EDT [facility] Hgb 12.3(L) 13.7 - 17.5 g/dL 02/07/2025 4:35 AM EDT [facility] Hct 39.3(L) 40.0 - 51.0 % 02/07/2025 4:35 AM EDT [facility] MCV 94.5 80.0 - 100.0 fL 02/07/2025 4:35 AM EDT [facility] MCH 29.6 26.0 - 34.0 pg 02/07/2025 4:35 AM EDT [facility] MCHC 31.3 30.7 - 35.5 g/dL 02/07/2025 4:35 AM EDT [facility] RDW 13.7 <=14.9 % 02/07/2025 4:35 AM EDT [facility] Platelet 143(L) 155 - 369 x10(3)/mcL 02/07/2025 4:35 AM EDT [facility] MPV 10.8 8.8 - 12.5 fL 02/07/2025 4:35 AM EDT [facility] Neut Percent 60.8 % 02/07/2025 4:35 AM EDT [facility] Comment:Neutrophils equals s egs plus bands Imm Gran% 0.6 % 02/07/2025 4:35 AM EDT [facility] [employer] [facility] Comment:Automated count of m etamyelocytes, myelocytes and promyelocytes. Lymph Percent 21.3 % 02/07/2025 4:35 AM EDT [facility] [place] Percent 14.4 % 02/07/2025 4:35 AM EDT [facility], [facility] Eos Percent 2.6 % 02/07/2025 4:35 AM EDT [facility], [facility] Baso Percent 0.3 % 02/07/2025 4:35 AM EDT [facility], [facility] Neut # 4.4 1.6 - 6.1 x10(3)/[facility] 02/07/2025 4:35 AM EDT [facility], [facility] Comment:Neutrophils equals s egs plus bands IMMGRAN# 0.0 0.0 - 0.1 x10(3)/[facility] 02/07/2025 4:35 AM EDT [facility] [employer] [facility], [facility] Comment:Automated count of m etamyelocytes, myelocytes and promyelocytes. An absolute IG <0.1 is reported as 0.0. Lymph # 1.5 1.2 - 3.9 x10(3)/[facility] 02/07/2025 4:35 AM EDT [facility], [facility] [place] # 1.0(H) 0.3 - 0.9 x10(3)/[facility] 02/07/2025 4:35 AM EDT [facility], [facility] Eos# 0.2 0.0 - 0.5 x10(3)/[facility] 02/07/2025 4:35 AM EDT [facility], [facility] Baso # 0.0 0.0 - 0.1 x10(3)/[facility] 02/07/2025 4:35 AM EDT [facility] [employer], [facility] Blood VENOUS BLOOD / Unknown Venipuncture / Unknown 02/07/2025 3:27 AM EDT 02/07/2025 4:23 AM EDT us Bakari Schreiber DO HEMATOLOGY ORDERABLES Fi nal Result [facility] [employer] [address] [facility] , [place] [address] * (ABNORMAL) BASIC METABOLIC PANEL (02/07/2025 3:27 AM EDT) Only the most recent of32 resultswithin the time period is included. Sodium 137 136 - 145 mmol/L 02/07/2025 4:56 AM EDT [facility] Potassium 4.4 3.5 - 5.0 mmol/L 02/07/2025 4:56 AM EDT [facility] Chloride 106 98 - 107 mmol/L 02/07/2025 4:56 AM EDT [facility] Total CO2 22 22 - 29 mmol/L 02/07/2025 4:56 AM EDT [facility] Anion Gap 9 7 - 16 mmol/L 02/07/2025 4:56 AM EDT [facility] Calcium 8.6(L) 8.8 - 10.4 mg/dL 02/07/2025 4:56 AM EDT [facility] Glucose Lvl 94 70 - 99 mg/dL 02/07/2025 4:56 AM EDT [facility] BUN 49(H) 8 - 23 mg/dL 02/07/2025 4:56 AM EDT [facility] Creatinine 2.88(H) 0.67 - 1.30 mg/dL 02/07/2025 4:56 AM EDT [facility] eGFR (CKD-EPIcr 2020) 21(L) >=60 mL/min/1.7 3 m2 02/07/2025 4:56 AM EDT [facility] Comment:Estimated GFR was ca lculated using the CKD-EPIcr (2020) equation refit without race. The equation is recommended by the National Kid[employer] - [place] [employer] of Nephrology Task Force. Blood VENOUS BLOOD / Unknown Venipuncture / Unknown 02/07/2025 3:27 AM EDT 02/07/2025 4:23 AM EDT us Bakari Schreiber DO CHEMISTRY ORDERABLES Fin al Result [facility] [address] [facility] , [place] [address] * EC ECHOCARDIOGRAM COMPLETE W DOPPLER AND COLOR FLOW MAPPING (02/06/2025 9:24 AM EDT) Only the most recent of2 resultswithin the time period is included. Ejection Fraction 55% [facility] [employer]AL [employer]GITATION trace PYRAMIS AORTIC STENOSIS no PYRAMIS Anatomical Region Laterality Modality Electrocardiogra phy 02/06/2025 9:36 AM EDT Impressions 02/06/2025 5:11 PM EDT Conclusions * Left ventricular function is normal with an estimated ejection fraction of 55%. Narrative Procedure Note Salas Blair MD - 02/06/2025 IMPRESSION Conclusions * Left ventricular function is normal with an estimated ejectionfraction of 55%. us Jose Angel T Michelle DO IMG ECHO ORDERABLES Edited Resul t - Final * SCANNED EKG (02/05/2025 3:31 PM EDT) Only the most recent of4 resultswithin the time period is included. Anatomical Region Laterality Modality Other 02/05/2025 3:31 PM EDT us Unknown Provider IMG ECG ORDERABLES Final Result * ME US CAROTID DUPLEX BILATERAL (02/05/2025 10:41 AM EDT) Only the most recent of3 resultswithin the time period is included. Anatomical Region Laterality Modality Vascular, Head, Neck Vascular Im aging 02/05/2025 9:59 AM EDT Impressions 02/05/2025 12:37 PM EDT Conclusions * There is a right proximal internal carotid artery mildly obstructive lesion noted, with an estimated 1-39% stenosis. * There is a left proximal internal carotid artery mildly obstructive lesion noted, with an estimated 1-39% stenosis. * The distal ICA is tortuous bilaterally. * Antegrade flow visualized in the bilateral vertebral artery. * No significant change since previous study on 02-21-24. Narrative Procedure Note Jr Reid MD - 02/05/2025 IMPRESSION Conclusions * There is a right proximal internal carotid artery mildly obstructive lesion noted, with an estimated 1-39% stenosis. * There is a left proximal internal carotid artery mildly obstructivelesion noted, with an estimated 1-39% stenosis. * The distal ICA is tortuous bilaterally. * Antegrade flow visualized in the bilateral vertebral artery. * No significant change since previous study on 02-21-24. Jose Angel Martinez DO IMG VASCULAR ORDERABLES Final Re sult * (ABNORMAL) TROPONIN-T HIGH SENSITIVITY 6 HR (02/05/2025 12:45 AM EDT) Pathologist [facility] [id number] 6HR 37(H) <22 ng/L 02/05/2025 1:21 AM EDT [facility] [employer] hs-cTnT 6Hr Delta from Baseline 0 <12 ng/L 02/05/2025 1:21 AM EDT [facility] [employer] Blood VENOUS BLOOD / Unknown Venipuncture / Unknown 02/05/2025 12:45 AM EDT 02/05/2025 12:51 AM EDT Narrative [facility] [employer] - 02/05/2025 1:21 AM EDT Ingestion of natalie doses of biotin (>5 mg/day) taken within 8 hours of drawing blood sample can interfere with this immunoassay test. Reji Calloway MD CHEMISTRY ORDERABLES Final Result [facility] [employer] [address] [place] [address] , [place] [address] * (ABNORMAL) TROPONIN-T HIGH SENSITIVITY 2HR (02/04/2025 8:43 PM EDT) Only the most recent of2 resultswithin the time period is included. we-nCfonvtnh-S 2HR 43(H) <22 ng/L 02/04/2025 9:09 PM EDT [facility] hs-cTnT 2Hr Delta from Baseline 6(H) <4 ng/L 02/04/2025 9:09 PM EDT [facility] Blood VENOUS BLOOD / Unknown Venipuncture / Unknown 02/04/2025 8:43 PM EDT 02/04/2025 8:49 PM EDT Narrative [facility] - 02/04/2025 9:09 PM EDT Ingestion of natalie doses of biotin (>5 mg/day) taken within 8 hours of drawing blood sample can interfere with this immunoassay test. Reji Calloway MD CHEMISTRY ORDERABLES Final Result Performing Organization Address [facility] de Phone Number [facility] [address] [place] [address] * (ABNORMAL) TROPONIN-T HIGH SENSITIVITY BASELINE W/ REFLEX (02/04/2025 6:46 PM EDT) Only the most recent of2 resultswithin the time period is included. [facility] fv-mRvukzktj-A 37(H) <22 ng/L 02/04/2025 7:17 PM EDT [employer] Blood VENOUS BLOOD / Unknown Venipuncture / Unknown 02/04/2025 6:46 PM EDT 02/04/2025 6:48 PM EDT Narrative [employer] - 02/04/2025 7:17 PM EDT Ingestion of natalie doses of biotin (>5 mg/day) taken within 8 hours of drawing blood sample can interfere with this immunoassay test. Reji Calloway MD CHEMISTRY ORDERABLES Final Result Performing Organization Address [facility] de Phone Number [employer] [address], [place] [address] * (ABNORMAL) CBC (02/04/2025 2:39 PM EDT) Only the most recent of7 resultswithin the time period is included. [facility] WBC 8.8 3.7 - 10.3 x10(3)/mcL 02/04/2025 2:45 PM EDT [facility] RBC 4.22(L) 4.60 - 6.10 x10(6)/mcL 02/04/2025 2:45 PM EDT [facility] Hgb 12.5(L) 13.7 - 17.5 g/dL 02/04/2025 2:45 PM EDT [facility] Hct 40.4 40.0 - 51.0 % 02/04/2025 2:45 PM EDT [facility] MCV 95.7 80.0 - 100.0 fL 02/04/2025 2:45 PM EDT [facility] MCH 29.6 26.0 - 34.0 pg 02/04/2025 2:45 PM EDT [facility] MCHC 30.9 30.7 - 35.5 g/dL 02/04/2025 2:45 PM EDT [facility] RDW 13.6 <=14.9 % 02/04/2025 2:45 PM EDT [facility] Platelet 145(L) 155 - 369 x10(3)/mcL 02/04/2025 2:45 PM EDT [facility] MPV 10.4 8.8 - 12.5 fL 02/04/2025 2:45 PM EDT [facility] Blood VENOUS BLOOD / Unknown Venipuncture / Unknown 02/04/2025 2:39 PM EDT 02/04/2025 2:42 PM EDT us Ramin Trevizo MD HEMATOLOGY ORDERABLES Final R esult [facility] [address] [place] [address] * EK EKG 12 LEAD (02/04/2025 12:08 PM EDT) Only the most recent of5 resultswithin the time period is included. 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 Anatomical Region Laterality Modality Abdomen, Pelvis Ultrasound 01/17/2025 9:07 AM EDT Impressions 01/17/2025 10:58 AM EDT Kidneys are small and increased in echogenicity. - Note: Radiology results need to be interpreted within a comprehensive clinical context. If you have questions about the radiology report, please contact the office of the ordering clinician. Narrative 01/17/2025 10:58 AM EDT US KIDNEYS AND BLADDER, 01/17/2025 9:07 AM CLINICAL HISTORY: N18.4-Chronic kidney disease, stage 4 (severe) (HCC)-ICD-10-CM D22-Zlizrxvow (primary) auafylwfxjik-VFR-30-CM. COMPARISON: 04/01/21. PROCEDURE COMMENTS: Routine sonographic evaluation of the kidneys and bladder with insurance representative images and patternmaker metal notes sent to PACS for radiologist review. FINDINGS: RIGHT: 7.9 x 5.3 x 3.5 cm. Small size and increased echogenicity right kidney. No hydronephrosis. LEFT: 8.2 x 4.3 x 4.2 cm. No hydronephrosis. Increased echogenicity and small size of the left kidney. 1.2 cm cyst. PELVIS: Bladder is unremarkable. Prostamegaly measuring up to 6.0 x 5.2 x 5.7 cm. Procedure Note Alondra Xie MD - 01/17/2025 US KIDNEYS AND BLADDER, 01/17/2025 9:07 AM CLINICAL HISTORY: N18.4-Chronic kidney disease, stage 4 (severe) (HCC)-ICD-10-CM R27-Eukvzoarn (primary) [id number]-HHU-44-CM. COMPARISON: 04/01/21. PROCEDURE COMMENTS: Routine sonographic evaluation of the kidneys andbladder with insurance representative images and patternmaker metal notes sent to PACS forradiologist review. FINDINGS: RIGHT: 7.9 x 5.3 x 3.5 cm. Small size and increased echogenicity rightkidney. No hydronephrosis. LEFT: 8.2 x 4.3 x 4.2 cm. No hydronephrosis. Increased echogenicity andsmall size of the left kidney. 1.2 cm cyst. PELVIS: Bladder is unremarkable. Prostamegaly measuring up to 6.0 x 5.2x 5.7 cm. IMPRESSION: Kidneys are small and increased in echogenicity. - Note: Radiology results need to be interpreted within a comprehensiveclinical context. If you have questions about the radiology report, please contactthe office of the ordering clinician. us Pauly Chan APRN G US ORDERABLES Final R esult * (ABNORMAL) CREATININE CLEARANCE, URINE 24 HOUR (01/17/2025 7:43 AM EDT) Creatinine 3.08(H) 0.67 - 1.30 mg/dL 01/17/2025 7:34 PM EDT [facility] [employer] Urine Creatinine 50.3 mg/dL 01/17/2025 7:34 PM EDT [facility] Ur Crea/24Hr 0.65(L) 0.98 - 2.20 gm/24hr 01/17/2025 7:34 PM EDT [facility] Urine Vol Creat 1,300 mL 7:34 PM EDT [facility] Cr Clearance 14.5(L) 66.0 - 143.0 mL/min 01/17/2025 7:34 PM EDT [facility] Urine 24 HOUR URINE SPECIMEN / Unknown 01/17/2025 7:43 AM EDT 01/17/2025 7:43 AM EDT Narrative [facility] [employer] - 01/17/2025 7:34 PM EDT Adjusted for body surface area. us Pauly Chan APRN URINE ORDERABLES Final Re sult Performing Organization Address City/[facility]/ZIP Co de Phone Number [facility] [employer], [address] , [place] [address] * PROTEIN/CREATININE RATIO URINE (01/17/2025 7:43 AM EDT) Only the most recent of16 resultswithin the time period is included. Urine Protein 51.8 mg/dL 01/17/2025 4:01 PM EDT [facility] [employer], [facility] Urine Creatinine 51.9 mg/dL 01/17/2025 4:01 PM EDT [facility] [employer], [facility] Ur Protein/Creat 1.00 mg/mg 01/17/2025 4:01 PM EDT [facility] Urine STRUCTURE OF URINARY TRACT PROPER / Unknown 01/17/2025 7:43 AM EDT 01/17/2025 7:43 AM EDT us Selvin Longo MD URINE ORDERABLES Final Result [facility] [employer], [address] [address] [place] [address] [facility] [address] [place] [address] * VITAMIN B12/ FOLIC ACID (01/17/2025 7:43 AM EDT) Vitamin B12 403 232 - 1,245 pg/mL 01/17/2025 4:17 PM EDT [facility] [employer], [facility] Folate 10.90 >=4.50 ng/mL 01/17/2025 4:17 PM EDT [facility] [employer], [facility] Blood VENOUS BLOOD / Unknown Venipuncture / Unknown 01/17/2025 7:43 AM EDT 01/17/2025 7:43 AM EDT Narrative [facility] [employer], [facility] - 01/17/2025 4:17 PM EDT Ingestion of natalie doses of biotin (>5 mg/day) taken within 8 hours of drawing blood sample can interfere with this immunoassay test. us Selvin Longo MD CHEMISTRY ORDERABLES Final Resu lt Performing Organization Address City/[facility]/ZIP Co de Phone Number [facility] [employer] [facility] 1 [facility] , [place] [address] * PROTEIN LEVEL URINE (01/17/2025 7:43 AM EDT) Urine Protein 51.8 mg/dL 01/17/2025 4:01 PM EDT [facility] [employer], [facility] Urine STRUCTURE OF URINARY TRACT PROPER / Unknown 01/17/2025 7:43 AM EDT 01/17/2025 7:43 AM EDT us Selvin Longo MD URINE ORDERABLES Final Result Performing Organization Address [facility] Co de Phone Number [facility] [employer], [facility] 1 [facility] , [place] [address] * CREATININE LEVEL URINE (01/17/2025 7:43 AM EDT) Urine Creatinine 51.9 mg/dL 01/17/2025 4:01 PM EDT [facility] [employer], [facility] Urine STRUCTURE OF URINARY TRACT PROPER / Unknown 01/17/2025 7:43 AM EDT 01/17/2025 7:43 AM EDT us Selvin Longo MD URINE ORDERABLES Final Result Performing Organization Address City/[facility]/ZIP Co de Phone Number [facility] [employer], [facility] 1 [facility] , [address] [place] [id number] * VITAMIN D, 1,25-DIHYDROXY -REF LAB (01/17/2025 7:43 AM EDT) Only the most recent of5 resultswithin the time period is included. Pathologist [facility] Vit D 1,25 47.6 19.9 - 79.3 pg/mL 01/19/2025 7:38 AM EDT [email or web address] Comment: INTERPRETIVE INFORMATION: Vitamin D, 1,25-Dihydroxy This test is primarily indicated during patient evaluation for hypercalcemia and renal failure. A normal result does not rule out Vitamin D deficiency. The recommended test for diagnosing Vitamin D deficiency is Vitamin D 25-hydroxy. Performed By: [facility] [address] [place] [address] Fire Engineer: Jb Green MD, PhD CLIA Number: [id number] Blood VENOUS BLOOD / Unknown Venipuncture / Unknown 01/17/2025 7:43 AM EDT 01/17/2025 7:43 AM EDT Selvin Longo MD CHEMISTRY ORDERABLES Final Resu lt [email or web address] [address] [place] [address] * (ABNORMAL) URINALYSIS (01/17/2025 7:43 AM EDT) Only the most recent of18 resultswithin the time period is included. [facility] UA Color Light Yellow 01/17/2025 3:25 PM EDT [facility] UA Appear Clear Clear 01/17/2025 3:25 PM EDT [facility] UA Glucose Trace (30-50 mg/dL) Negative mg/dL 01/17/2025 3:25 PM EDT [facility], [facility] UA Ketones Negative Negative mg/dL 01/17/2025 3:25 PM EDT [facility] UA Blood Trace (0.03 mg/dL)(A) Negative 01/17/2025 3:25 PM EDT [facility] UA pH 6.0 5.0 - 8.0 pH 01/17/2025 3:25 PM EDT [facility] UA Protein 1+ (30-70 mg/dL)(A) Negative mg/dL 01/17/2025 3:25 PM EDT [facility] UA Urobilinogen Normal <=1 mg/dL 3:25 PM EDT [facility] UA Bili Negative Negative 01/17/2025 3:25 PM EDT [facility] UA Nitrite Negative Negative 01/17/2025 3:25 PM EDT [facility] UA Leuk Est Negative Negative 01/17/2025 3:25 PM EDT [facility] UA Spec Grav 1.011 1.001 - 1.035 no units 01/17/2025 3:25 PM EDT [facility] Comment:Reference range kranthi d for random specimens only. UA WBC <1 0 - 4 /HPF 01/17/2025 3:25 PM EDT [facility] UA RBC 1 0 - 3 /HPF 01/17/2025 3:25 PM EDT [facility] UA Squam Epi Few /LPF 01/17/2025 3:25 PM EDT [facility] UA Mucus Trace /LPF 01/17/2025 3:25 PM EDT [facility] UA Hyal Cast 3(H) 0 - 2 /LPF 01/17/2025 3:25 PM EDT [facility] UA Trans Epi <1(H) <=0 /HPF 01/17/2025 3:25 PM EDT [facility] Urine STRUCTURE OF URINARY TRACT PROPER / Unknown 01/17/2025 7:43 AM EDT 01/17/2025 7:43 AM EDT us Selvin Longo MD URINE ORDERABLES Final Result [facility], [facility] 1 [facility] , [place] [address] * PHOSPHORUS LEVEL (01/17/2025 7:43 AM EDT) Only the most recent of17 resultswithin the time period is included. Phosphorus 3.7 2.5 - 4.5 mg/dL 01/17/2025 4:37 PM EDT [facility] [employer] [facility] Blood VENOUS BLOOD / Unknown Venipuncture / Unknown 01/17/2025 7:43 AM EDT 01/17/2025 7:43 AM EDT Selvin Longo MD CHEMISTRY ORDERABLES Final Resu lt [facility] [employer] [address] , [address] [place] [phone] * MAGNESIUM LEVEL (01/17/2025 7:43 AM EDT) Only the most recent of17 resultswithin the time period is included. Magnesium 2.2 1.6 - 2.4 mg/dL 01/17/2025 4:37 PM EDT [facility] [employer] [facility] Blood VENOUS BLOOD / Unknown Venipuncture / Unknown 01/17/2025 7:43 AM EDT 01/17/2025 7:43 AM EDT Selvin Longo MD CHEMISTRY ORDERABLES Final Resu lt [facility] [employer] , [address] [place] [phone] * (ABNORMAL) CREATININE (01/17/2025 7:43 AM EDT) Creatinine 3.08(H) 0.67 - 1.30 mg/dL 01/17/2025 4:37 PM EDT [facility] [employer] [facility] eGFR (CKD-EPIcr 2020) 19(L) >=60 mL/min/1.7 3 m2 01/17/2025 4:37 PM EDT [employer] Comment: Estimated GFR was calculated using the CKD-EPIcr (2020) equation refit without race. The equation is recommended by the National Kidney Foundation - [place] Society of Nephrology Task Force. Estimated GFR was calculated using the CKD-EPIcr (2020) equation refit without race. The equation is recommended by the National Kidney Foundation - [place] Society of Nephrology Task Force. Blood VENOUS BLOOD / Unknown Venipuncture / Unknown 01/17/2025 7:43 AM EDT 01/17/2025 7:43 AM EDT Pauly Chan NUTRITION HELPER CHEMISTRY ORDERABLES Kendra l Result Performing Organization Address [facility] de Phone Number [facility] [employer] [address], [place] [address] * VITAMIN D 25 HYDROXY (12/13/2024 9:57 AM EST) Only the most recent of15 resultswithin the time period is included. Vit D 25 OH 68.9 30.0 - 150.0 ng/mL 12/13/2024 3:48 PM EST [facility] [employer] Comment: Preferred: >= 30 ng/mL Insufficient: 21-29 ng/mL Deficient <= 20 ng/mL Possible Toxicity: >150 ng/mL Samples should not be taken from patients receiving therapy with high biotin doses (i.e. > 5 mg/day) until at least 8 hours following the last biotin administration. Blood VENOUS BLOOD / Unknown Venipuncture / Unknown 12/13/2024 9:57 AM EST 12/13/2024 9:59 AM EST Selvin Longo MD CHEMISTRY ORDERABLES Final Resu lt Performing Organization Address [facility] Phone Number [facility] [employer], [address] [place] [phone] * (ABNORMAL) URIC ACID (12/13/2024 9:57 AM EST) Only the most recent of15 resultswithin the time period is included. Uric Acid 7.5(H) 3.4 - 7.0 mg/dL 12/13/2024 4:21 PM EST [employer] Blood VENOUS BLOOD / Unknown Venipuncture / Unknown 12/13/2024 9:57 AM EST 12/13/2024 9:59 AM EST Selvin Longo MD CHEMISTRY ORDERABLES Final Resu lt Performing Organization Address City/[facility]/ZIP Co de Phone Number [employer] [facility] 1 [facility] , [place] [address] * (ABNORMAL) PARATHYROID HORMONE INTACT (12/13/2024 9:57 AM EST) Only the most recent of14 resultswithin the time period is included. PTH Intact 11.40(L) 15.00 - 65.00 pg/mL 12/13/2024 3:35 PM EST [employer] Blood VENOUS BLOOD / Unknown Venipuncture / Unknown 12/13/2024 9:57 AM EST 12/13/2024 9:59 AM EST Narrative [employer] [facility] - 12/13/2024 3:35 PM EST [employer] PTH Calcium Interpretation ------- 15 - 65 8.6 - 10.2 Normal > 65 > 10.2 Primary Hyperparathyroidism < 20 > 10.2 Non-Parathyroid hypercalcemia < 15 < 8.6 Hypoparathyroidism Consider the above as guidelines only. PTH results should be interpreted in conjunction with the total or ionized calcium level. The finding of a persistently high-normal calcium accompanied by a high-normal PTH (or a low-normal calcium accompanied by a low-normal PTH) warrants further investigation. Although the PTH may itself be within normal limits, it may be inappropriately high (or low) relative to the circulating calcium level. Ingestion of natalie doses of biotin (>5 mg/day) taken within 8 hours of drawing blood sample can interfere with this immunoassay test. Selvin Longo MD CHEMISTRY ORDERABLES Final [facility] Performing Organization Address [facility]/ZIP Co de Phone Number [employer] [facility] 1 [facility] , [place] [address] * (ABNORMAL) LIPID SCREEN (12/13/2024 9:57 AM EST) Only the most recent of3 resultswithin the time period is included. Cholesterol 135 <200 mg/dL 12/13/2024 4:21 PM EST [employer] Comment: < 200 Desirable 200 - 239 Borderline High >= 240 High Triglyceride 96 <150 mg/dL 12/13/2024 4:21 PM EST [facility] [employer] [facility] Comment: < 150 Normal 150 - 199 Borderline High 200 - 499 High >= 500 Very High HDL 38(L) >=40 mg/dL 12/13/2024 4:21 PM EST [facility] [employer] [facility] Comment: > 60 Optimal 40 - 60 Acceptable < 40 Low LDL Calculated 79 <100 mg/dL 12/13/2024 4:21 PM EST [facility] [employer] [facility] Comment: < 100 Optimal 100 - 129 Near or above optimal 130 - 159 Borderline High 160 - 189 High >= 190 Very High The National Institutes of Health (NIH) equation is used for all lipid panels that report calculated LDL (LDL-C). Non-HDL-C Calculated 97 <=129 mg/dL 12/13/2024 4:21 PM EST [facility] [employer] [facility] Comment: <130 Desirable 130-159 Above Desirable 160-189 Borderline High 190-219 High >= 220 Very High Fasting Specimen? Yes None 025 4:21 PM EST [facility] Blood VENOUS BLOOD / Unknown Venipuncture / Unknown 12/13/2024 9:57 AM EST 12/13/2024 9:59 AM EST us Phil Larsen MD CHEMISTRY ORDERABLES Final Res ult [facility] [employer] [facility] [address], [place] [address] [facility] [address] [place] [address] * EV EVENT MONITOR (02/21/2024 5:30 PM EDT) Anatomical Region Laterality Modality Holter/Event Mon itoring 03/21/2024 4:00 AM EDT Impressions 03/27/2024 6:59 AM EDT [facility] [place] Test Date: 2024-03-21 Pat Name: NAOMY JAMISON Department: DEPID Room: Gender: Male 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: : 1940 Requested By: VICKIE Castro Order Number: [id number] Reading MD: Kallie Hagan DO Interpretive Statements Canteen Manager Date: 02/21/2024 Referring Provider: Vickie Crockett APRN Patient was monitored for 28d 6h 53m INDICATIONS: Syncope and collapse CONCLUSION: <1% PVC's Patient reported symptom during NSR Electronically Signed On 03-27-2024 06:59:31 EDT by Kallie Hagan DO Narrative Procedure Note Kallie Hagan DO - 03/27/2024 [facility]: [facility] Pat Name: NAOMY JAMISON Department: DEPID Room: Gender: Male 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 LV DIASTOLIC PLAX 4.36 cm PYRAMIS Ejection Fraction 55-60% PYRAMIS MITRAL REGURGITATION trace PYRAMIS AORTIC STENOSIS no PYRAMIS Anatomical Region Laterality Modality Electrocardiogra phy 02/21/2024 12:4 3 PM EDT Impressions 02/21/2024 2:10 PM EDT Conclusions * Technically difficult study. * Left ventricle is not well visualized. * Left ventricular function is normal with an estimated ejection fraction of 55-60%. * Left ventricular segmental wall motion is grossly normal, however endocardial definition is limited. * The left ventricular diastolic function is consistent with stage I diastolic dysfunction (normal left atrial pressure). * Right ventricular chamber dimension is not well visualized. * Right ventricular systolic function is normal, with a tricuspid annular plane systolic excursion of 1.8 cm and a RV s' of 10.6 cm/s. Narrative Procedure Note Doug Foster MD - 02/21/2024 IMPRESSION Conclusions * Technically difficult study. * Left ventricle is not well visualized. * Left ventricular function is normal with an estimated ejectionfraction of 55-60%. * Left ventricular segmental wall motion is grossly normal, however endocardial definition is limited. * The left ventricular diastolic function is consistent with stage I diastolic dysfunction (normal left atrial pressure). * Right ventricular chamber dimension is not well visualized. * Right ventricular systolic function is normal, with a tricuspidannular plane systolic excursion of 1.8 cm and a RV s' of 10.6 cm/s. Erika Palma MD IMG ECHO ORDERABLES Final Result * TSH REFLEX (02/20/2024 2:08 PM EDT) Pathologist [facility] TSH Reflex 2.600 0.270 - 4.200 mcIU/mL 02/21/2024 4:14 PM EDT [employer] Blood VENOUS BLOOD / Unknown Venipuncture / Unknown 02/20/2024 2:08 PM EDT 02/20/2024 2:15 PM EDT Narrative [facility] [employer] - 02/21/2024 4:14 PM EDT Ingestion of natalie doses of biotin (>5 mg/day) taken within 8 hours of drawing blood sample can interfere with this immunoassay test. Vickie Crockett APRN CHEMISTRY ORDERABLES Final Result [employer] 1 [facility] , [place] [address] * (ABNORMAL) NT PROBNP (02/20/2024 2:08 PM EDT) Only the most recent of2 resultswithin the time period is included. Pathologist [facility] NT Pro-BNP 936(H) <=852 pg/mL 02/20/2024 2:42 PM EDT [facility] Blood VENOUS BLOOD / Unknown Venipuncture / Unknown 02/20/2024 2:08 PM EDT 02/20/2024 2:15 PM EDT Narrative [facility] - 02/20/2024 2:42 PM EDT An NT pro-BNP level less than 300 pg/mL in any patient, regardless of age, effectively rules out acute CHF with a 99% negative predictive value. Ingestion of natalie doses of biotin (>5 mg/day) taken within 8 hours of drawing blood sample can interfere with this immunoassay test. us Delfina GONZALEZ CHEMISTRY ORDERABLES Final Result [facility] [address] [place] [address] * CT HEAD WO CONTRAST (02/20/2024 1:11 PM EDT) Anatomical Region Laterality Modality Head Computed Tomogra phy 02/20/2024 1:11 PM EDT Impressions 02/20/2024 1:16 PM EDT No acute intracranial abnormality. - Note: Radiology results need to be interpreted within a comprehensive clinical context. If you have questions about the radiology report, please contact the office of the ordering clinician. Narrative 02/20/2024 1:[address] HEAD WO CONTRAST 02/20/2024 1:11 PM CLINICAL HISTORY: Syncope. COMPARISON: None. PROCEDURE COMMENTS: Routine noncontrast head CT with multiplanar reconstructions. Dose 1 : CT DLP Total : 849.94 mGycm DLP Spiral Max : 843.85 mGycm Maximum CTDI Vol : 47.48 mGy FINDINGS: No evidence of acute stroke, mass, or hemorrhage. No fracture or extra-axial collection. Age-related changes noted, including atrophy and findings compatible with chronic small vessel disease. Chronic appearing mucosal thickening and opacification seen in the right maxillary and ethmoid sinuses. Other sinuses and mastoids are clear. Procedure Note Chung Juarez MD - 02/20/2024 CT HEAD WO CONTRAST 02/20/2024 1:11 PM CLINICAL HISTORY: Syncope. COMPARISON: None. PROCEDURE COMMENTS: Routine noncontrast head CT with multiplanar reconstructions. Dose 1 : CT DLP Total : 849.94 mGycm DLP Spiral Max : 843.85 mGycm Maximum CTDI Vol : 47.48 mGy FINDINGS: No evidence of acute stroke, mass, or hemorrhage. No fracture orextra-axial collection. Age-related changes noted, including atrophy and findingscompatible with chronic small vessel disease. Chronic appearing mucosal thickening and opacification seen in the right maxillary and ethmoid sinuses. Other sinuses and mastoids are clear. IMPRESSION: No acute intracranial abnormality. - Note: Radiology results need to be interpreted within a comprehensiveclinical context. If you have questions about the radiology report, please contactthe office of the ordering clinician. us Delfina OGNZALEZ IMG CT ORDERABLES Final Re sult * XR CHEST AP PORTABLE (02/20/2024 1:08 PM EDT) Only the most recent of2 resultswithin the time period is included. Anatomical Region Laterality Modality Chest Radiographic Negrita ging 02/20/2024 1:08 PM EDT Impressions 02/20/2024 1:17 PM EDT No acute finding. - Note: Radiology results need to be interpreted within a comprehensive clinical context. If you have questions about the radiology report, please contact the office of the ordering clinician. Narrative 02/20/2024 1:17 PM EDT XR CHEST AP PORTABLE, 02/20/2024 1:08 PM CLINICAL HISTORY: -syncope COMPARISON: 11/28/2018 PROCEDURE COMMENTS: AP portable technique. FINDINGS: Support devices: No visible support devices. Heart and mediastinal contours within normal limits for technique. Unchanged asymmetric elevation of the left hemidiaphragm. No active failure, pneumonia, or visible effusion. No visible pneumothorax. Procedure Note Blake Gallo MD - 02/20/2024 XR CHEST AP PORTABLE, 02/20/2024 1:08 PM CLINICAL HISTORY: -syncope COMPARISON: 11/28/2018 PROCEDURE COMMENTS: AP portable technique. FINDINGS: Support devices: No visible support devices. Heart and mediastinal contours within normal limits for technique.Unchanged asymmetric elevation of the left hemidiaphragm. No active failure,pneumonia, or visible effusion. No visible pneumothorax. IMPRESSION: No acute finding. - Note: Radiology results need to be interpreted within a comprehensiveclinical context. If you have questions about the radiology report, please contactthe office of the ordering clinician. us Delfina GONZALEZ IMG DIAGNOSTIC IMAGING ORD ERABLES Final Result * POCT EKG (07/27/2023 1:41 PM EDT) Only the most recent of3 resultswithin the time period is included. 07/27/2023 1:41 PM EDT Impressions SE[facility] OFFICE - 07/27/2023 1:41 PM EDT Sinus Rhythm WITHIN NORMAL LIMITS us Phil Larsen MD POINT OF CARE CARDIOLOGY Final Result [facility] * (ABNORMAL) LIPID PANEL REFLEX (02/18/2022 8:17 AM EDT) Cholesterol 136 <200 mg/dL 02/18/2022 4:27 PM EDT [facility] [employer] [employer] Comment: < 200 Desirable 200 - 239 Borderline High >= 240 High Triglyceride 95 <150 mg/dL 02/18/2022 4:27 PM EDT [facility] [employer] [employer] Comment: < 150 Normal 150 - 199 Borderline High 200 - 499 High >= 500 Very High HDL 37(L) >=40 mg/dL 02/18/2022 4:27 PM EDT [facility] [employer] [employer] Comment: > 60 Optimal 40 - 60 Acceptable < 40 Low LDL Calculated 81 <100 mg/dL 02/18/2022 4:27 PM EDT [facility] [employer] [employer] Non-HDL-C Calculated 99 <=129 mg/dL 02/18/2022 4:27 PM EDT [facility] [employer] [employer] Comment: <130 Desirable 130-159 Above Desirable 160-189 Borderline High 190-219 High >= 220 Very High Fasting Specimen? Yes None 022 4:27 PM EDT [facility] Blood VENOUS BLOOD / Unknown Venipuncture / Unknown 02/18/2022 8:17 AM EDT 02/18/2022 8:17 AM EDT Phil Laresn MD CHEMISTRY ORDERABLES Final Res ult Performing Organization Address [facility] Co de Phone Number [facility] [employer] [address] [place], [place] [id number] [facility] [address] [place], [place] [id number] * CORONARY PERCUTANEOUS INTERVENTION(PCI), LEFT HEART CATH (05/16/2021 12:57 PM EDT) Only the most recent of2 resultswithin the time period is included. Narrative [facility] - 05/16/2021 1:05 PM EDT Prox RCA lesion is 99% stenosed. - Severe proximal RCA stenosis s/p PCI with RYLEE x 1 - Normal LVEDP Coronary Findings Diagnostic Dominance: Right Right Coronary Artery: Prox RCA lesion is 99% stenosed. Intervention Prox RCA lesion: Stent: The pre-interventional distal flow is normal (LILIANA 3). Pre-stent angioplasty was performed using a 3.5MM X 20MM TREK BALLOON supply. A 5.0MM X 26MM MICHAEL STENT drug eluting stent was successfully placed. Maximum pressure: 10 kait. The strut is apposed. No post-stent angioplasty was performed The post-interventional distal flow is normal (LILIANA 3). The intervention was successful. No complications occurred at this lesion. There is a 0% residual stenosis post intervention. Left Heart Pressures Normal LVEDP Helen Braun MD CARDIAC CATH ORDERABLES Fi nal Result Performing Organization Address [facility] Co de Phone Number [facility] * (ABNORMAL) ACTIVATED CLOTTING TIME LR POC (05/16/2021 12:39 PM EDT) ACT-LR >400(H) 89 - 169 second(s) 05/16/2021 12:45 PM EDT [facility] Blood BLOOD SPECIMEN / Unknown 05/16/2021 12:39 PM EDT 05/16/2021 12:45 PM EDT Helen Braun MD POINT OF CARE TEST ORDERAB LES Final Result Performing Organization Address [facility] Co de Phone Number [facility] [address] [place] [address] * MENTAL HEALTH TECH HEMODYNAMIC WAVEFORMS (05/16/2021 12:03 PM EDT) Only the most recent of2 resultswithin the time period is included. 05/16/2021 12:0 3 PM EDT us Helen Braun MD CARDIAC CATH ORDERABLES Fi nal Result Performing Organization Address [facility] Co de Phone Number [facility] [address] [place] [address] * SCANNED LABS (04/07/2021 3:15 PM EDT) 04/07/2021 3:15 PM EDT us Unknown Unknown HEMATOLOGY ORDERABLES Final Resu lt * NM MYOCARDIAL REST SPECT ONLY FOR PET (03/14/2021 10:26 AM EDT) Narrative PACS - 03/14/2021 10:26 AM EDT Images associated with the PET study performed on this patient. Please review the PET study report for the full dictation. us Phil Larsen MD IMG NM ORDERABLES Final Result Performing Organization Address [facility] Co de Phone Number PACS * PET HEART VIABILITY (03/13/2021 10:43 AM EDT) Anatomical Region Laterality Modality Chest Positron Emissio n Tomography (PET) 03/13/2021 10:4 3 AM EDT Impressions 03/14/2021 12:33 PM EDT Moderate to large resting abnormality as above is metabolically active indicative of viable myocardium. - Note: Radiology results need to be interpreted within a comprehensive clinical context. If you have questions about the radiology report, please contact the office of the ordering clinician. Narrative 03/14/2021 12:33 PM EDT PET HEART VIABILITY, 03/13/2021 10:43 AM CLINICAL HISTORY: 80 years. 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 COMPARISON: None PROCEDURE COMMENTS: PET HEART VIABILITY. 32.5 mCi technetium Myoview rest, 12 mCi 18 F FDG IV via right antecubital injection. Blood glucose 96. FINDINGS: Resting Myoview images demonstrate a moderate to large anterior, anteroseptal, and apical abnormality. FDG images show that this abnormality is metabolically active indicating by viable myocardium. Procedure Note Clif Garnica MD - 03/14/2021 PET HEART VIABILITY, 03/13/2021 10:43 AM CLINICAL HISTORY: 80 years. 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 COMPARISON: None PROCEDURE COMMENTS: PET HEART VIABILITY. 32.5 mCi technetium Myoview rest,12 mCi 18 F FDG IV via right antecubital injection. Blood glucose 96. FINDINGS: Resting Myoview images demonstrate a moderate to large anterior,anteroseptal, and apical abnormality. FDG images show that this abnormality is metabolically active indicatingby viable myocardium. IMPRESSION: Moderate to large resting abnormality as above is metabolically active indicative of viable myocardium. - Note: Radiology results need to be interpreted within a comprehensiveclinical context. If you have questions about the radiology report, please contactthe office of the ordering clinician. us Phil Larsen MD IM PET ORDERABLES Final Resul t * GLUCOSE METER POC (03/13/2021 9:23 AM EDT) Pathologist [facility] Glucose Meter POC 95 70 - 100 mg/dL 03/13/2021 9:24 AM EDT [facility] Sample Type Capillary 03/13/2021 9:24 AM EDT [facility] Patient Status Non-Critical Patient 03/13/2021 9:24 AM EDT [facility] Blood BLOOD SPECIMEN / Unknown 03/13/2021 9:23 AM EDT 03/13/2021 9:24 AM EDT us Phil Larsen MD POINT OF CARE TEST ORDERABLES Final Result Performing Organization Address [facility] [place] [address] * EXTRA DIAZ URINE CX (12/07/2018 7:17 AM EST) Only the most recent of2 resultswithin the time period is included. Urine URINE SPECIMEN OBTAINED VIA INDWELLING URINARY CATHETER / Unknown 12/07/2018 7:17 AM EST 12/07/2018 7:23 AM EST us Isacc Francisco MD MICROBIOLOGY - GENERAL ORDERA BLES Final Result Performing Organization Address [facility] [place] [address] * SCANNED RHYTHM STRIPS (12/01/2018 4:20 PM EST) Only the most recent of3 resultswithin the time period is included. Anatomical Region Laterality Modality Other 12/01/2018 4:20 PM EST us Unknown Unknown IMG ECG ORDERABLES Final Result * INTRAOP AIRWAY PLACEMENT (11/29/2018 9:08 AM EST) Narrative [facility] - 11/29/2018 9:08 AM EST Bebeto Lee CRNA 11/29/2018 9:17 AM Intraop Airway Placement: Date/Time: 11/29/2018 9:08 AM Induction type: IV Mask ventilation: Easy mask ventilation Airway type: LMA Topical Anesthetic/Lubricant: Lubricant jelly Airway location: Oral Device size: 4 Secured by: Tape Placement verified: End tidal CO2 and Symmetric chest wall motion Condition: Unchanged and Atraumatic Insertion attempts: 1 Attempt 1 by: KBA Title: CHRISTINE Procedure Note JesusBebeto foxCHRISTINE - 11/29/2018 9:08 AM EST Intraop Airway Placement: Date/Time: 11/29/2018 9:08 AM Induction type: IV Mask ventilation: Easy mask ventilation Airway type: LMA Topical Anesthetic/Lubricant: Lubricant jelly Airway location: Oral Device size: 4 Secured by: Tape Placement verified: End tidal CO2 and Symmetric chest wall motion Condition: Unchanged and Atraumatic Insertion attempts: 1 Attempt 1 by: KBA Title: RIVET DRIVER us Nathalie Mckinley [place] [address] * XR ABDOMEN AP (11/28/2018 6:27 PM EST) Anatomical Region Laterality Modality Abdomen Radiographic Negrita ging 11/28/2018 6:27 PM EST Impressions 11/28/2018 6:40 PM EST No acute finding. Narrative 11/28/2018 6:40 PM EST CR, ABDOMEN AP, 11/28/2018 6:27 PM CLINICAL HISTORY: -FLANK PAIN COMPARISON: None. PROCEDURE COMMENTS: AP view(s) of the abdomen per protocol. FINDINGS: Gas pattern is nonobstructive but otherwise nonspecific. Degenerative changes of the spine and hips. No suspicious calcifications visualized. Procedure Note Clif Garnica MD - 11/28/2018 CR, ABDOMEN AP, 11/28/2018 6:27 PM CLINICAL HISTORY: -FLANK PAIN COMPARISON: None. PROCEDURE COMMENTS: AP view(s) of the abdomen per protocol. FINDINGS: Gas pattern is nonobstructive but otherwise nonspecific. Degenerativechanges of the spine and hips. No suspicious calcifications visualized. IMPRESSION: No acute finding. us Nadia Chaudhary APRN IMG DIAGNOSTIC IMAGING O RDERABLES Final Result * XR LUMBAR SPINE AP AND LATERAL (11/28/2018 5:29 PM EST) Anatomical Region Laterality Modality L-spine Radiographic Negrita ging 11/28/2018 5:29 PM EST Impressions 11/28/2018 5:48 PM EST 1. No acute osseous abnormality is identified in the lumbar spine. 2. Multilevel degenerative changes, as detailed above. Narrative 11/28/2018 5:48 PM EST XR LUMBAR SPINE AP AND LATERAL, 11/28/2018 5:29 PM CLINICAL HISTORY: -FLANK PAIN COMPARISON: Referral is made to abdomen and pelvis CT from 11/28/2018, which has been reported separately PROCEDURE COMMENTS: 3 views lumbar spine per protocol. FINDINGS: There are 5 lumbar vertebral bodies. There is mild to moderate S shaped curvature of the lumbar spine on the AP view. There is straightening of the lumbar spine in the lateral projection. No fracture or subluxation is identified. There are multiple levels of advanced disc space narrowing and hypertrophic endplate change, greatest and moderate to severe at L2-3, L4-5, and L5-S1. Hypertrophic facet changes are greatest caudally. There is atherosclerotic calcification of the abdominal aorta. Distal left ureteral calculus is better evaluated on recent CT. Procedure Note Tommy Forde MD - 11/28/2018 XR LUMBAR SPINE AP AND LATERAL, 11/28/2018 5:29 PM CLINICAL HISTORY: -FLANK PAIN COMPARISON: Referral is made to abdomen and pelvis CT from 11/28/2018,which has been reported separately PROCEDURE COMMENTS: 3 views lumbar spine per protocol. FINDINGS: There are 5 lumbar vertebral bodies. There is mild to moderate S shaped curvature of the lumbar spine on the AP view. There is straightening ofthe lumbar spine in the lateral projection. No fracture or subluxation is identified. There are multiple levels of advanced disc space narrowing andhypertrophic endplate change, greatest and moderate to severe at L2-3, L4-5, andL5-S1. Hypertrophic facet changes are greatest caudally. There is atherosclerotic calcification of the abdominal aorta. Distalleft ureteral calculus is better evaluated on recent CT. IMPRESSION: 1. No acute osseous abnormality is identified in the lumbar spine. 2. Multilevel degenerative changes, as detailed above. us Nadia Chaudhary APRN IMG DIAGNOSTIC IMAGING O RDERABLES Final Result * XR CHEST PA AND LATERAL (11/28/2018 5:20 PM EST) Anatomical Region Laterality Modality Chest Radiographic Negrita ging 11/28/2018 5:20 PM EST Impressions 11/28/2018 5:45 PM EST No acute abnormality is identified in the chest. Narrative 11/28/2018 5:45 PM EST PA AND LATERAL CHEST X-RAY, 11/28/2018 5:20 PM CLINICAL HISTORY: -FLANK PAIN COMPARISON: Portable chest from 09/25/2014 PROCEDURE COMMENTS: Frontal and lateral views of the chest. FINDINGS: Heart size, mediastinal contours, and moderate asymmetric elevation of the left diaphragm are not significantly changed. Aortic calcification suspected. The lungs are clear of confluent airspace opacity. Multiple gas-filled bowel loops underlie the elevated left diaphragm. No pneumothorax or pleural effusion is identified. Procedure Note Tommy Forde MD - 11/28/2018 PA AND LATERAL CHEST X-RAY, 11/28/2018 5:20 PM CLINICAL HISTORY: -FLANK PAIN COMPARISON: Portable chest from 09/25/2014 PROCEDURE COMMENTS: Frontal and lateral views of the chest. FINDINGS: Heart size, mediastinal contours, and moderate asymmetric elevation of theleft diaphragm are not significantly changed. Aortic calcification suspected.The lungs are clear of confluent airspace opacity. Multiple gas-filled bowelloops underlie the elevated left diaphragm. No pneumothorax or pleural effusionis identified. IMPRESSION: No acute abnormality is identified in the chest. Nadia Sun Jet ELIDA IMG DIAGNOSTIC IMAGING O RDERABLES Final Result * CT ABDOMEN PELVIS WO ORAL OR IV CONTRAST (11/28/2018 5:00 PM EST) Anatomical Region Laterality Modality Abdomen, Pelvis Computed Tomogra phy 11/28/2018 5:00 PM EST Impressions 11/28/2018 5:17 PM EST 3 x 4 mm stone in the distal left ureter with mild/moderate hydronephrosis above. Narrative 11/28/2018 5:[address] ABDOMEN AND PELVIS WITHOUT IV OR ORAL CONTRAST, 11/28/2018 5:00 PM CLINICAL HISTORY: -Flank pain, stone known or suspected COMPARISON: None. PROCEDURE COMMENTS: Noncontrast multidetector CT examination of the abdomen and pelvis without IV or oral contrast per protocol. Multiplanar reconstructions. Automated exposure control for dose reduction was used. CTDIvol: 7.0 mGy. DLP: 353 mGy-cm. FINDINGS: Elevation left hemidiaphragm with associated atelectasis. Lungs are otherwise clear. The liver, gallbladder, pancreas, spleen, and adrenals are unremarkable. There is mild/moderate left hydronephrosis and hydroureter secondary to a 3 x 4 mm stone in the distal left ureter just above the level of the ureterovesicular junction. No other renal or ureteral calculi demonstrate. Bladder is largely collapsed, grossly normal. Prostate gland is massively enlarged. The small and large bowel are normal in caliber without obstruction or wall thickening. Appendix is normal in the right lower quadrant. No free fluid or suspicious lymphadenopathy. Moderate atherosclerotic calcification throughout the aorta and branch vessels. No suspicious osseous lesion. Procedure Note Tommy Nguyen MD - 11/28/2018 CT ABDOMEN AND PELVIS WITHOUT IV OR ORAL CONTRAST, 11/28/2018 5:00 PM CLINICAL HISTORY: -Flank pain, stone known or suspected COMPARISON: None. PROCEDURE COMMENTS: Noncontrast multidetector CT examination of theabdomen and pelvis without IV or oral contrast per protocol. Multiplanarreconstructions. Automated exposure control for dose reduction was used. CTDIvol: 7.0 mGy.DLP: 353 mGy-cm. FINDINGS: Elevation left hemidiaphragm with associated atelectasis. Lungs areotherwise clear. The liver, gallbladder, pancreas, spleen, and adrenals are unremarkable. There is mild/moderate left hydronephrosis and hydroureter secondary to a3 x 4 mm stone in the distal left ureter just above the level of theureterovesicular junction. No other renal or ureteral calculi demonstrate. Bladder islargely collapsed, grossly normal. Prostate gland is massively enlarged. The small and large bowel are normal in caliber without obstruction orwall thickening. Appendix is normal in the right lower quadrant. No free fluid or suspicious lymphadenopathy. Moderate atherosclerotic calcification throughout the aorta and branchvessels. No suspicious osseous lesion. IMPRESSION: 3 x 4 mm stone in the distal left ureter with mild/moderatehydronephrosis above. Nadia Chaudhary APRN IMG CT ORDERABLES Final Result * LACTIC ACID (11/28/2018 4:50 PM EST) Lactic Acid 0.8 0.5 - 1.9 mmol/L 11/28/2018 5:13 PM [facility] Blood VENOUS BLOOD / Unknown Venipuncture / Unknown 11/28/2018 4:50 PM EST 11/28/2018 4:58 PM EST Nadiafavian [employer] NUTRITION HELPER CHEMISTRY ORDERABLES Fin al Result [facility] [address] [place] [address] * (ABNORMAL) COMPREHENSIVE METABOLIC PANEL (11/28/2018 4:50 PM EST) Pathologist [facility] Sodium 136 136 - 145 mmol/L 11/28/2018 5:17 PM [facility] Potassium 4.8 3.5 - 5.0 mmol/L 11/28/2018 5:17 PM [facility] Chloride 102 98 - 107 mmol/L 11/28/2018 5:17 PM [facility] Total CO2 19(L) 22 - 29 mmol/L 11/28/2018 5:17 PM [facility] Anion Gap 15 7 - 16 mmol/L 11/28/2018 5:17 PM [facility] Calcium 8.9 8.8 - 10.2 mg/dL 11/28/2018 5:17 PM [facility] Glucose Lvl 94 82 - 100 mg/dL 11/28/2018 5:17 PM [facility] BUN 43(H) 8 - 23 mg/dL 11/28/2018 5:17 PM [facility] Creatinine 3.28(H) 0.67 - 1.30 mg/dL 11/28/2018 5:17 PM [facility] Albumin 3.7 3.2 - 4.6 gm/dL 11/28/2018 5:17 PM [facility] Total Protein 7.1 6.4 - 8.3 gm/dL 11/28/2018 5:17 PM [facility] Bili Total 0.7 0.1 - 1.4 mg/dL 11/28/2018 5:17 PM EST [facility] ALT 10 <=41 IU/L 11/28/2018 5:17 PM EST [facility] AST 15 <=40 IU/L 11/28/2018 5:17 PM [facility] Alk Phos 99 40 - 129 IU/L 11/28/2018 5:17 PM [facility] GFR Afr Am 20(L) >=60 mL/min/1.7 3 m2 11/28/2018 5:17 PM EST [facility] GFR Non Afr Am 17(L) >=60 mL/min/1.7 3 m2 11/28/2018 5:17 PM EST [facility] Comment: This estimated GFR was calculated using CKD-EPI equation which is modified based on ethnicity for Non Americans and Americans. Both results are reported since it is not always possible to determine the patient's ethnicity. This equation should only be used for individuals 18 and older. It has not been validated for use with the elderly (>70 years), women, or in some racial or ethnic subgroups, such as Hispanics. The equation will be less accurate in people with differences in nutritional status or muscle mass. Blood VENOUS BLOOD / Unknown Venipuncture / Unknown 11/28/2018 4:50 PM EST 11/28/2018 4:58 PM EST us Nadia Chaudhary APRN CHEMISTRY ORDERABLES [place] [address] * SCANNED RADIOLOGY REPORT (09/26/2014 1:01 PM EST) Anatomical Region Laterality Modality Other us Unknown Unknown IMG DIAGNOSTIC IMAGING ORDERABLE S Final Result * NM MYOCARDIAL PERFUSION SPECT STRESS AND REST (09/26/2014 10:47 AM EST) Anatomical Region Laterality Modality Nuclear Medicine 09/25/2014 2:54 PM EST Impressions 09/26/2014 4:10 PM EST SPECT RESULTS Technical Quality: Technically adequate study Raw Data Analysis: No clinically relevant artifact Perfusion: Homogeneous uptake of isotope throughout the left ventricle on both stress and rest images. No evidence of myocardial ischemia or prior myocardial infarction. FUNCTION (calculated via Gated SPECT) Post Stress LV EF:72 % TID: 0.96 EDV: 56 ml (70-100 ml) ESV: 16 ml (30-50 ml) EDVI: ml/m (30-50 ml/m ) ESVI: ml/m (15-30 ml/m ) Technical Quality: Gated SPECT appears to be visually accurate LV Size & Function: Normal left ventricular wall motion and contractility. Normal left ventricular size and function. LV Regional Function: Normal LV wall motion and function with EF approximately 70 %. Right Ventricle: Normal right ventricular size and function. IMPRESSIONS Normal left ventricular perfusion study. No evidence of myocardial ischemia or myocardial infarction. Normal left ventricular size and function. Narrative Procedure Note Juan A Moe MD - 09/26/2014 IMPRESSION SPECT RESULTS Technical Quality: Technically adequate study Raw Data Analysis: No clinically relevant artifact Perfusion: Homogeneous uptake of isotope throughout the leftventricle on both stress and rest images. No evidence of myocardial ischemia or priormyocardial infarction. FUNCTION (calculated via Gated SPECT) Post Stress LV EF:72 %TID: 0.96 EDV: 56 ml (70-100 ml) ESV: 16 ml(30-50 ml) EDVI: ml/m (30-50 ml/m ) ESVI:ml/m (15-30 ml/m ) Technical Quality: Gated SPECT appears to be visually accurate LV Size & Function: Normal left ventricular wall motion andcontractility. Normal left ventricular size and function. LV Regional Function: Normal LV wall motion and function with EFapproximately 70 %. Right Ventricle: Normal right ventricular size and function. IMPRESSIONS Normal left ventricular perfusion study. No evidence of myocardial ischemia or myocardial infarction. Normal left ventricular size and function. us Familia Myers MD [facility] CARDIAC ORDERABLES Final Result * ST STRESS TEST EXERCISE (09/26/2014 9:55 AM EST) Anatomical Region Laterality Modality Cardiac Stress T esting 09/26/2014 9:32 AM EST Impressions 09/26/2014 10:24 AM EST Exercise ECG Report [facility] Interpretive Statements Exercise ECG Negative For IschemiaType of Test: Exercise Reason for Exam: Chest pain and dizziness. Ordering Diagnosis: Chest pain and dizziness. Resting HR: 81 Peak HR: 132 Resting B/P 116/78 Peak B/P 171/77 Baseline: Arrhythmias: ?? Conclusion: 1. METS achieved 8.3 2. Target HR achieved: Yes 3. Termination of test due to Shortness of breath. 4. Symptoms: Shortness of breath. 5. Nuclear Imaging pending. Normal Resting EKG Nonischemic GXT by EKG criteris Electronically Signed On 2014-09-26 10:24:02 EST by Familia Juarez MD Narrative Procedure Note Familia Juarez MD - 09/26/2014 IMPRESSION Exercise ECG Report [facility] Interpretive Statements Exercise ECG Negative For IschemiaType of Test: Exercise Reason for Exam: Chest pain and dizziness. Ordering Diagnosis: Chest pain and dizziness. Resting HR: 81 Peak HR: 132 Resting B/P 116/78 Peak B/P 171/77 Baseline: Arrhythmias: ?? Conclusion: 1. METS achieved 8.3 2. Target HR achieved: Yes 3. Termination of test due to Shortness of breath. 4. Symptoms: Shortness of breath. 5. Nuclear Imaging pending. Normal Resting EKG Nonischemic GXT by EKG criteris Electronically Signed On 2014-09-26 10:24:02 EST by Familia Juarez MD Familia Myers MD IMG STRESS ORDERABLES Final Res ult * TROPONIN-T (09/25/2014 5:30 PM EST) Only the most recent of3 resultswithin the time period is included. Troponin-T <0.01 <=0.02 ng/mL [facility] Comment: < 0.03 No detectable myocardial injury 0.03 - 0.10 Possible myocardial injury > 0.10 Indicative of myocardial injury Blood specimen (specimen) 09/25/2014 5:30 PM EST 09/25/2014 5:41 PM EST Salvatore Poon MD CHEMISTRY ORDERABLES Final R esult [facility] [address] [place] [address] * (ABNORMAL) DIFFERENTIAL (09/25/2014 11:00 AM EST) Neut Percent 68.7 % [facility] Lymph Percent 18.4 % [facility] [place] Percent 12.0 % [facility] Eos Percent 0.5 % [facility] Baso Percent 0.4 % [facility] Neut# 4.4 1.8 - 7.7 x10(3)/mcL [facility] Lymph# 1.2 1.0 - 4.8 x10(3)/mcL [facility] [place]# 0.8 0.0 - 1.3 x10(3)/mcL [facility] Eos# 0.0(L) 0.1 - 0.5 x10(3)/mcL [facility] Baso# 0.0 0.0 - 0.2 x10(3)/mcL [facility] Blood specimen (specimen) 09/25/2014 11:00 AM EST 09/25/2014 11:48 AM EST us Salvatore Poon MD HEMATOLOGY ORDERABLES Final Result Performing Organization Address [facility] Co de Phone Number [facility] [address] [place] [address] Visit Diagnoses Diagnosis Start Date Acute chest pain Chest pain, unspecified 09/25/2014 Dizziness Dizziness and giddiness 09/25/2014 Creatinine elevation Other nonspecific findings on examination of blood 09/25/2014 HLD (hyperlipidemia) Other and unspecified hyperlipidemia 09/25/2014 HTN (hypertension) Unspecified essential hypertension 09/25/2014 Vertigo Dizziness and giddiness 09/25/2014 Chest pain, unspecified 09/25/2014 Dizziness and giddiness 09/25/2014 Hydronephrosis with urinary obstruction due to ureteral calculus 11/29/2018 Hydronephrosis with urinary obstruction due to ureteral calculus 11/28/2018 Acute renal failure, unspecified acute renal failure type 11/28/2018 KATINA (acute kidney injury) Acute kidney failure, unspecified 11/28/2018 Urinary retention Retention of urine, unspecified 12/07/2018 Encounter to establish care Reserved for inherently not codable concepts WITHOUT codable children 02/28/2021 Chronic systolic heart failure (HCC) Chronic systolic heart failure 02/28/2021 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 02/28/2021 Stage 3 chronic kidney disease, unspecified whether stage 3a or 3b CKD (HCC) 02/28/2021 Encounter to establish care Reserved for inherently not codable concepts WITHOUT codable children 03/11/2021 Chronic systolic heart failure (HCC) Chronic systolic heart failure 03/11/2021 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 03/11/2021 Stage 3 chronic kidney disease, unspecified whether stage 3a or 3b CKD (HCC) 03/11/2021 Encounter to establish care Reserved for inherently not codable concepts WITHOUT codable children 03/13/2021 Chronic systolic heart failure (HCC) Chronic systolic heart failure 03/13/2021 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 03/13/2021 Stage 3 chronic kidney disease, unspecified whether stage 3a or 3b CKD (HCC) 03/13/2021 Encounter to establish care Reserved for inherently not codable concepts WITHOUT codable children 03/14/2021 Chronic systolic heart failure (HCC) Chronic systolic heart failure 03/14/2021 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 03/14/2021 Stage 3 chronic kidney disease, unspecified whether stage 3a or 3b CKD (HCC) 03/14/2021 Kidney stones Calculus of kidney 04/01/2021 Kidney stones Calculus of kidney 04/01/2021 Stage 4 chronic kidney disease (HCC) 04/01/2021 Essential hypertension Unspecified essential hypertension 04/01/2021 Stage 4 chronic kidney disease (HCC) 04/02/2021 Essential hypertension Unspecified essential hypertension 04/02/2021 Chronic systolic heart failure (HCC) Chronic systolic heart failure 04/04/2021 Chronic systolic heart failure (HCC) Chronic systolic heart failure 04/04/2021 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 04/04/2021 Chronic systolic heart failure (HCC) Chronic systolic heart failure 04/08/2021 Arteriosclerotic heart disease (ASHD) Coronary atherosclerosis of unspecified type of vessel, [place] or graft 04/11/2021 Dyspnea on exertion Other dyspnea and respiratory abnormality 04/11/2021 Abnormal stress test Other nonspecific abnormal cardiovascular system function study 04/11/2021 Arteriosclerotic heart disease (ASHD) Coronary atherosclerosis of unspecified type of vessel, [place] or graft 04/11/2021 Dyspnea on exertion Other dyspnea and respiratory abnormality 04/11/2021 Stage 3a chronic kidney disease (HCC) 04/24/2021 Stage 3a chronic kidney disease (HCC) 04/25/2021 Stage 4 chronic kidney disease (HCC) 04/29/2021 Essential hypertension Unspecified essential hypertension 04/29/2021 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 05/02/2021 Encounter to establish care Reserved for inherently not codable concepts WITHOUT codable children 05/06/2021 Chronic systolic heart failure (HCC) Chronic systolic heart failure 05/06/2021 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 05/06/2021 Stage 3 chronic kidney disease, unspecified whether stage 3a or 3b CKD (HCC) 05/06/2021 Encounter to establish care Reserved for inherently not codable concepts WITHOUT codable children 05/09/2021 Chronic systolic heart failure (HCC) Chronic systolic heart failure 05/09/2021 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 05/09/2021 Stage 3 chronic kidney disease, unspecified whether stage 3a or 3b CKD (HCC) 05/09/2021 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 05/12/2021 Encounter to establish care Reserved for inherently not codable concepts WITHOUT codable children 05/14/2021 Chronic systolic heart failure (HCC) Chronic systolic heart failure 05/14/2021 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 05/14/2021 Stage 3 chronic kidney disease, unspecified whether stage 3a or 3b CKD (HCC) 05/14/2021 Coronary artery disease involving [place] coronary artery of [place] heart with other form of angina pectoris 05/14/2021 Coronary artery disease involving [place] coronary artery of [place] heart with other form of angina pectoris 05/14/2021 Coronary artery disease involving [place] coronary artery of [place] heart with other form of angina pectoris 05/16/2021 Angina, class III Other and unspecified angina pectoris 05/16/2021 Coronary artery disease involving [place] coronary artery of [place] heart with other form of angina pectoris 05/16/2021 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 06/19/2021 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 06/24/2021 Stage 4 chronic kidney disease (HCC) 06/27/2021 Essential hypertension Unspecified essential hypertension 06/27/2021 Stage 3 chronic kidney disease, unspecified whether stage 3a or 3b CKD (HCC) 07/31/2021 Essential hypertension, malignant 07/31/2021 Stage 3 chronic kidney disease, unspecified whether stage 3a or 3b CKD (HCC) 07/31/2021 Essential hypertension, malignant 07/31/2021 Stage 4 chronic kidney disease (HCC) 08/13/2021 Essential hypertension, malignant 08/13/2021 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 and nephropathy, not specified as acute or chronic, with specified pathological lesion in kidney 08/13/2021 Stage 4 chronic kidney disease (HCC) 09/10/2021 Essential hypertension, malignant 09/10/2021 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 and nephropathy, not specified as acute or chronic, with specified pathological lesion in kidney 09/10/2021 Stage 4 chronic kidney disease (HCC) 09/17/2021 Essential hypertension, malignant 09/17/2021 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 and nephropathy, not specified as acute or chronic, with specified pathological lesion in kidney 09/17/2021 Stage 4 chronic kidney disease (HCC) 12/11/2021 Essential hypertension, malignant 12/11/2021 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 and nephropathy, not specified as acute or chronic, with specified pathological lesion in kidney 12/11/2021 Stage 4 chronic kidney disease (HCC) 12/17/2021 Essential hypertension, malignant 12/17/2021 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 and nephropathy, not specified as acute or chronic, with specified pathological lesion in kidney 12/17/2021 S/P coronary artery stent placement Postsurgical percutaneous transluminal coronary angioplasty status 12/23/2021 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 12/23/2021 Chronic systolic heart failure (HCC) Chronic systolic heart failure 12/23/2021 S/P coronary artery stent placement Postsurgical percutaneous transluminal coronary angioplasty status 02/18/2022 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 02/18/2022 Stage 4 chronic kidney disease (HCC) 03/31/2022 Essential hypertension, malignant 03/31/2022 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 and nephropathy, not specified as acute or chronic, with specified pathological lesion in kidney 03/31/2022 Stage 4 chronic kidney disease (HCC) 04/07/2022 Essential hypertension, malignant 04/07/2022 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 and nephropathy, not specified as acute or chronic, with specified pathological lesion in kidney 04/07/2022 S/P coronary artery stent placement Postsurgical percutaneous transluminal coronary angioplasty status 05/04/2022 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 05/04/2022 Chronic systolic heart failure (HCC) Chronic systolic heart failure 05/04/2022 Encounter to establish care Reserved for inherently not codable concepts WITHOUT codable children 05/20/2022 Chronic systolic heart failure (HCC) Chronic systolic heart failure 05/20/2022 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 05/20/2022 Stage 3 chronic kidney disease, unspecified whether stage 3a or 3b CKD (HCC) 05/20/2022 Stage 4 chronic kidney disease (HCC) 07/02/2022 Essential hypertension, malignant 07/02/2022 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 and nephropathy, not specified as acute or chronic, with specified pathological lesion in kidney 07/02/2022 Stage 4 chronic kidney disease (HCC) 07/09/2022 Essential hypertension, malignant 07/09/2022 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 and nephropathy, not specified as acute or chronic, with specified pathological lesion in kidney 07/09/2022 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 07/14/2022 Encounter to establish care Reserved for inherently not codable concepts WITHOUT codable children 07/14/2022 Chronic systolic heart failure (HCC) Chronic systolic heart failure 07/14/2022 Stage 3 chronic kidney disease, unspecified whether stage 3a or 3b CKD (HCC) 07/14/2022 Stage 4 chronic kidney disease (HCC) 10/28/2022 Essential hypertension, malignant 10/28/2022 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 and nephropathy, not specified as acute or chronic, with specified pathological lesion in kidney 10/28/2022 Stage 4 chronic kidney disease (HCC) 11/05/2022 Essential hypertension, malignant 11/05/2022 Hyperlipidemia, unspecified hyperlipidemia type 01/11/2023 Stage 4 chronic kidney disease (HCC) 01/11/2023 Essential hypertension, malignant 01/11/2023 Primary hypertension Unspecified essential hypertension 01/19/2023 Chronic kidney disease, stage IV (severe) (HCC) Chronic kidney disease, Stage IV (severe) 03/02/2023 Chronic kidney disease, stage IV (severe) (HCC) Chronic kidney disease, Stage IV (severe) 03/02/2023 Stage 4 chronic kidney disease (HCC) 03/09/2023 Essential hypertension Unspecified essential hypertension 03/09/2023 Hyperlipidemia, unspecified hyperlipidemia type 06/02/2023 Stage 4 chronic kidney disease (HCC) 06/02/2023 Essential hypertension Unspecified essential hypertension 06/02/2023 Stage 4 chronic kidney disease (HCC) 06/09/2023 Essential hypertension Unspecified essential hypertension 06/09/2023 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 06/15/2023 Encounter to establish care Reserved for inherently not codable concepts WITHOUT codable children 06/15/2023 Chronic systolic heart failure (HCC) Chronic systolic heart failure 06/15/2023 Stage 3 chronic kidney disease, unspecified whether stage 3a or 3b CKD (HCC) 06/15/2023 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 07/27/2023 Chronic kidney disease, stage IV (severe) (HCC) Chronic kidney disease, Stage IV (severe) 09/06/2023 Chronic kidney disease, stage IV (severe) (HCC) Chronic kidney disease, Stage IV (severe) 09/06/2023 Stage 4 chronic kidney disease (HCC) 09/15/2023 Essential hypertension Unspecified essential hypertension 09/15/2023 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 and nephropathy, not specified as acute or chronic, with specified pathological lesion in kidney 09/15/2023 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 11/15/2023 Encounter to establish care Reserved for inherently not codable concepts WITHOUT codable children 11/15/2023 Chronic systolic heart failure (HCC) Chronic systolic heart failure 11/15/2023 Stage 3 chronic kidney disease, unspecified whether stage 3a or 3b CKD (HCC) 11/15/2023 Stage 4 chronic kidney disease (HCC) 11/24/2023 Essential hypertension Unspecified essential hypertension 11/24/2023 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 and nephropathy, not specified as acute or chronic, with specified pathological lesion in kidney 11/24/2023 Stage 4 chronic kidney disease (HCC) 12/10/2023 Essential hypertension Unspecified essential hypertension 12/10/2023 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 and nephropathy, not specified as acute or chronic, with specified pathological lesion in kidney 12/10/2023 Stage 4 chronic kidney disease (HCC) 12/16/2023 Essential hypertension Unspecified essential hypertension 12/16/2023 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 and nephropathy, not specified as acute or chronic, with specified pathological lesion in kidney 12/16/2023 Stage 4 chronic kidney disease (HCC) 12/23/2023 Essential hypertension Unspecified essential hypertension 12/23/2023 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 and nephropathy, not specified as acute or chronic, with specified pathological lesion in kidney 12/23/2023 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 01/28/2024 Encounter to establish care Reserved for inherently not codable concepts WITHOUT codable children 01/28/2024 Chronic systolic heart failure (HCC) Chronic systolic heart failure 01/28/2024 Stage 3 chronic kidney disease, unspecified whether stage 3a or 3b CKD ([facility]) 01/28/2024 Chronic systolic heart failure (HCC) Chronic systolic heart failure 02/08/2024 Syncope and collapse 02/21/2024 Syncope and collapse 02/20/2024 Chronic kidney disease, stage IV (severe) (HCC) Chronic kidney disease, Stage IV (severe) 03/07/2024 Chronic kidney disease, stage IV (severe) (HCC) Chronic kidney disease, Stage IV (severe) 03/07/2024 Stage 4 chronic kidney disease (HCC) 03/15/2024 Essential hypertension Unspecified essential hypertension 03/15/2024 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 and nephropathy, not specified as acute or chronic, with specified pathological lesion in kidney 03/15/2024 Sleep disturbance Sleep disturbance, unspecified 04/04/2024 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 04/06/2024 Encounter to establish care Reserved for inherently not codable concepts WITHOUT codable children 04/06/2024 Chronic systolic heart failure (HCC) Chronic systolic heart failure 04/06/2024 Stage 3 chronic kidney disease, unspecified whether stage 3a or 3b CKD (HCC) 04/06/2024 Stage 4 chronic kidney disease (HCC) 06/08/2024 Essential hypertension Unspecified essential hypertension 06/08/2024 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 and nephropathy, not specified as acute or chronic, with specified pathological lesion in kidney 06/08/2024 Stage 4 chronic kidney disease (HCC) 06/15/2024 Essential hypertension Unspecified essential hypertension 06/15/2024 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 and nephropathy, not specified as acute or chronic, with specified pathological lesion in kidney 06/15/2024 Stage 4 chronic kidney disease (HCC) 08/23/2024 Essential hypertension Unspecified essential hypertension 08/23/2024 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 and nephropathy, not specified as acute or chronic, with specified pathological lesion in kidney 08/23/2024 Stage 4 chronic kidney disease (HCC) 09/13/2024 Essential hypertension Unspecified essential hypertension 09/13/2024 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 and nephropathy, not specified as acute or chronic, with specified pathological lesion in kidney 09/13/2024 Stage 4 chronic kidney disease (HCC) 09/21/2024 Essential hypertension Unspecified essential hypertension 09/21/2024 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 and nephropathy, not specified as acute or chronic, with specified pathological lesion in kidney 09/21/2024 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 11/02/2024 Encounter to establish care Reserved for inherently not codable concepts WITHOUT codable children 11/02/2024 Chronic systolic heart failure (HCC) Chronic systolic heart failure 11/02/2024 Stage 3 chronic kidney disease, unspecified whether stage 3a or 3b CKD (HCC) 11/02/2024 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 2024 Encounter to establish care Reserved for inherently not codable concepts WITHOUT codable children 2024 Chronic systolic heart failure (HCC) Chronic systolic heart failure 2024 Stage 3 chronic kidney disease, unspecified whether stage 3a or 3b CKD (HCC) 2024 Stage 4 chronic kidney disease (HCC) 12/13/2024 Essential hypertension Unspecified essential hypertension 12/13/2024 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 and nephropathy, not specified as acute or chronic, with specified pathological lesion in kidney 12/13/2024 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 12/13/2024 Encounter to establish care Reserved for inherently not codable concepts WITHOUT codable children 12/13/2024 Chronic systolic heart failure (HCC) Chronic systolic heart failure 12/13/2024 Stage 3 chronic kidney disease, unspecified whether stage 3a or 3b CKD (HCC) 12/13/2024 Stage 4 chronic kidney disease (HCC) 12/28/2024 Essential hypertension Unspecified essential hypertension 12/28/2024 Hypertension, unspecified type 01/16/2025 Stage 4 chronic kidney disease (HCC) 01/17/2025 Essential hypertension Unspecified essential hypertension 01/17/2025 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 and nephropathy, not specified as acute or chronic, with specified pathological lesion in kidney 01/17/2025 Hypertension, unspecified type 01/17/2025 Stage 4 chronic kidney disease (HCC) 01/17/2025 Essential hypertension Unspecified essential hypertension 01/17/2025 Stage 4 chronic kidney disease (HCC) 01/24/2025 Essential hypertension Unspecified essential hypertension 01/24/2025 Syncope and collapse 02/04/2025 Sleep disturbance Sleep disturbance, unspecified 03/06/2025 Primary hypertension Unspecified essential hypertension 03/06/2025 Chronic systolic heart failure (HCC) Chronic systolic heart failure 04/03/2025 Chronic systolic heart failure (HCC) Chronic systolic heart failure 07/10/2025 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 07/19/2025 Encounter to establish care Reserved for inherently not codable concepts WITHOUT codable children 07/19/2025 Chronic systolic heart failure (HCC) Chronic systolic heart failure 07/19/2025 Stage 3 chronic kidney disease, unspecified whether stage 3a or 3b CKD (HCC) 07/19/2025 Acute chest pain Chest pain, unspecified 09/25/2014 HTN (hypertension) Unspecified essential hypertension 09/25/2014 HLD (hyperlipidemia) Other and unspecified hyperlipidemia 09/25/2014 Creatinine elevation Other nonspecific findings on examination of blood 09/25/2014 Dizziness Dizziness and giddiness 09/25/2014 Vertigo Dizziness and giddiness 09/25/2014 HTN (hypertension) Unspecified essential hypertension 11/28/2018 HLD (hyperlipidemia) Other and unspecified hyperlipidemia 11/28/2018 Nephrolithiasis Calculus of kidney 11/28/2018 KATINA (acute kidney injury) Acute kidney failure, unspecified 11/28/2018 HTN (hypertension) Unspecified essential hypertension 05/16/2021 HLD (hyperlipidemia) Other and unspecified hyperlipidemia 05/16/2021 CKD (chronic kidney disease) Chronic kidney disease, unspecified 05/16/2021 S/P coronary artery stent placement Postsurgical percutaneous transluminal coronary angioplasty status 05/16/2021 Syncope and collapse 02/20/2024 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 02/20/2024 HTN (hypertension) Unspecified essential hypertension 02/20/2024 HLD (hyperlipidemia) Other and unspecified hyperlipidemia 02/20/2024 CKD (chronic kidney disease) Chronic kidney disease, unspecified 02/20/2024 Syncope and collapse 02/04/2025 Chronic systolic heart failure ([facility]) Chronic systolic heart failure 02/04/2025 CKD (chronic kidney disease) stage 4, GFR 15-29 ml/min (HCC) Chronic kidney disease, Stage IV (severe) 02/04/2025 ASHD (arteriosclerotic heart disease) Coronary atherosclerosis of unspecified type of vessel, [place] or graft 02/04/2025 HTN (hypertension) Unspecified essential hypertension 02/04/2025 HLD (hyperlipidemia) Other and unspecified hyperlipidemia 02/04/2025 Ischemic cardiomyopathy Other specified forms of chronic ischemic heart disease 02/04/2025 S/P coronary artery stent placement Postsurgical percutaneous transluminal coronary angioplasty status 02/04/2025 Troponin level elevated Other abnormal blood chemistry 02/04/2025 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
--- NOTE | 2025-10-17 14:15 | XR_ITS ---
FINAL REPORT CLINICAL HISTORY: Lobar pneumonia, cough with congestion since 10/15 FINDINGS: PA and lateral views of the chest are obtained. There is no prior exam for comparison. The cardiac and mediastinal silhouettes are within normal limits. The lungs are clear. There is no focal infiltrate or effusion. There is elevation of the left hemidiaphragm, favored to be chronic. There is no pneumothorax. IMPRESSION: Elevation of the left hemidiaphragm, likely chronic. Otherwise, no acute process. Reviewed, Interpreted and Dictated by Gissel James MD Transcribed by Pauly Aguilar Authenticated and [facility]
[2025-10-17 15:08] LABS: Hematocrit 42.7 % (42.0-52.0); Hemoglobin 13.5 g/dL (14.1-18.0); Immature Granulocytes % 0.4 %; Mean Corpuscular HGB Conc 31.6 g/dL (31.8-35.4); Mean Corpuscular Hemoglobin 29.5 pg (27.0-31.2); Mean Corpuscular Volume 93.4 fl (80-94); Nucleated Red Blood Cells % 0 %; Platelet Count 187 K/mm3 (142-424); Red Blood Count 4.57 M/mm3 (4.60-6.20); Red Cell Distribution Width-SD 45.1 fL; White Blood Count 9.4 K/mm3 (4.8-10.8)
[2025-10-17 15:37] LABS: Alanine Aminotransferase 21 U/L (12-78); Albumin Level 3.7 g/dl (3.5-5.0); Albumin/Globulin Ratio 1.3 (1.1-1.8); Alkaline Phosphatase 146 U/L (38-126); Anion Gap 12.4 mEq/L (5-15); Aspartate Amino Transferase 27 U/L (17-59); Bilirubin,Total 0.9 mg/dl (0.2-1.3); Blood Urea Nitrogen 53 mg/dl (9-20); Calcium 9.0 mg/dl (8.4-10.2); Carbon Dioxide 23 mmol/L (22.0-30.0); Chloride 108 mmol/L (98-107); Estimated Glomerular Filt Rate 12 ml/min (>60); GFR (African American) 14 ML/MIN (>60); Globulin 2.9 g/dL (1.3-3.2); Glucose 109 mg/dl (74-100); Potassium 4.4 mmoL/L (3.5-5.1); Sodium 139 mmol/L (136-145); Total Protein,Serum 6.6 g/dl (6.3-8.2)
[2025-10-17 15:41] LABS: Creatinine,Serum 4.80 mg/dl (0.66-1.25)
== END 2025-10-17 23:59 | disposition home or self-care (01) ==
LOC: RAD 14:11
PROVIDERS: PCP Internal Medicine Adolescent Medicine; Visit Provider Internal Medicine Adolescent Medicine
DX: J18.1 Lobar pneumonia, unspecified organism (principal); J98.6 Disorders of diaphragm
CPT/HCPCS: 36415; 71046; 80053; 85025; 87040